=== PATIENT | female | born 1945 | race Two or more races ===

== ENCOUNTER 2020-12-06 03:35 | Inpatient (IN) | payer MEDICARE, OTHER ==
[~2020-12-06] VITALS: Ht 170.2 cm; Wt 78.5 kg
[2020-12-06] VITALS (14 sets, daily range): BP systolic 102–160; BP diastolic 54–92
--- NOTE | 2020-12-06 03:40 | NUR ---
ED Nurse Note:Pt brought in by ambulance RA 58. Axox1 only to self. Pt arrived on 15L NRB SPO2 91%. Per EMS pt's SPO2 desaturated at the [facility]. When EMS checked her SPO2 it was 71% on room air. Pt is covid positve 10 days ago. PT is pale and edematous. Labs sent, urine sent, EKG done at bedside, RT at bedside, nasal swabs and rectal swab sent.
--- NOTE | 2020-12-06 03:42 | Emergency Room Report ---
History of Present Illness General Chief Complaint: Dyspnea/Respdistress Source: Patient, Medical Record, EMS (Evaristo Lopez MD) Present Illness HPI Patient is a 75-year-old female who presents for increased difficulty with breathing and decreased oxygen saturation. Patient been sent in from [facility]. Had prior history of coronavirus infection with positive test 10 days ago. Patient had diminished oxygen saturation and had been started on nonrebreather by EMS. Prior history of unstageable pressure sores, hypertension, dementia, psychosis and hyperlipidemia. History is markedly limited by patient's mental status. 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 COVID-19 Screening: Positive COVID-19 COVID-19 Testing Source: [facility] (Evaristo Lopez MD) Patient History Past Medical History: see triage record Reviewed Nursing Documentation: PMH: Agreed; PSxH: Agreed (Evaristo Lopez MD) Nursing Documentation-PMH Hx Asthma: Yes History Of Psychiatric Problem: Yes - schizophrenia (Evaristo Lopez MD) Review of Systems All Other Systems: limited - Review of systems: Review systems is limited by patient's being a poor historian (Evaristo Lopez MD) Physical Exam Vital Signs Date Time Temp Pulse Resp B/P (MAP) Pulse Ox O2 Delivery O2 Flow Rate FiO2 12/06/20 03:23 99.7 130 28 90 Non-Rebreather General Appearance: alert, obese, Chronically Ill ENT: dry mucus membranes Neck: limited range of motion Respiratory: respiratory distress, rhonchi, other - Tachypnea, Cardiovascular #1: tachycardia Gastrointestinal: normal inspection, non tender, soft Genitourinary: no CVA tenderness Musculoskeletal: other - Decreased range of motion Neurologic: alert, oriented x3 Psychiatric: depressed affect Skin: other - Decubitus ulcer (Evaristo Lopez MD) Procedures Critical Care Time Critical Care Time Patient had a critical medical condition which untreated could potentially result in life or limb threatening injury. Total critical care time excluding procedures approximately 45 minutes. (Evaristo Lopez MD) Medical Decision Making Diagnostic Impression: Primary Impression: Coronavirus infection, unspecified Additional Impressions: Hypoxia Bilateral pneumonia ER Course Patient presented for decreased saturation and respiratory distress. Differential diagnosis include was not limited to coronavirus pneumonia, CHF, pneumonia among others. Because of complexity of patient's case laboratory tests and imaging studies were ordered. Patient has prior history of coronavirus infection. She was started immediately on high flow oxygen. Patient was given IV fluids as well as IV antibiotics empirically. She was given Decadron due to hypoxemia.She was empirically started on IV antibiotics due to possible secondary infection with bacteria. Patient be admitted to hospital for further management of pneumonia and hypoxemia. Patient was started on BiPAP.Patient was discussed with Dr. Vázquez who agreed with admission. Laboratory Tests Test 12/06/20 03:45 12/06/20 03:47 12/06/20 14:45 12/06/20 19:25 White Blood Count 13.3 K/UL (4.8-10.8) H Red Blood Count 3.63 M/UL (4.20-5.40) L Hemoglobin 10.1 G/DL (12.0-16.0) L Hematocrit 32.1 % (37.0-47.0) L Mean Corpuscular Volume 89 FL (80-99) Mean Corpuscular Hemoglobin 27.9 PG (27.0-31.0) Mean Corpuscular Hemoglobin Concent 31.5 G/DL (32.0-36.0) L Red Cell Distribution Width 15.6 % (11.6-14.8) H Platelet Count 281 K/UL (150-450) Mean Platelet Volume 7.2 FL (6.5-10.1) Neutrophils (%) (Auto) 79.0 % (45.0-75.0) H Lymphocytes (%) (Auto) 14.1 % (20.0-45.0) L Monocytes (%) (Auto) 6.4 % (1.0-10.0) Eosinophils (%) (Auto) 0.1 % (0.0-3.0) Basophils (%) (Auto) 0.4 % (0.0-2.0) Prothrombin Time 12.0 SEC (9.30-11.50) H Prothrombin Time INR 1.1 (0.9-1.1) Activated Partial Thromboplast Time 28 SEC (23-33) D-Dimer 6.00 mg/L FEU (0.00-0.49) H Urine Color Yellow Urine Appearance Slightly cloudy Urine pH 6.5 (4.5-8.0) Urine Specific [place] 1.015 (1.005-1.035) Urine Protein 2+ (NEGATIVE) H Urine Glucose (UA) Negative (NEGATIVE) Urine Ketones Negative (NEGATIVE) Urine Blood 4+ (NEGATIVE) H Urine Nitrite Negative (NEGATIVE) Urine Bilirubin Negative (NEGATIVE) Urine Urobilinogen 4 MG/DL (0.0-1.0) H Urine Leukocyte Esterase 1+ (NEGATIVE) H Urine RBC 20-30 /HPF (0 - 2) H Urine WBC 5-10 /HPF (0 - 2) H Urine Squamous Epithelial Cells Moderate /LPF (NONE/OCC) H Urine Bacteria Moderate /HPF (NONE) H Urine Yeast Many /HPF (NONE) H Sodium Level 136 MMOL/L (136-145) Potassium Level 4.4 MMOL/L (3.5-5.1) Chloride Level 103 MMOL/L (98-107) Carbon Dioxide Level 27 MMOL/L (21-32) Anion Gap 6 mmol/L (5-15) Blood Urea Nitrogen 20 mg/dL (7-18) H Creatinine 0.8 MG/DL (0.55-1.30) Estimated Glomerular Filtration Rate > 60 mL/min (>60) Glucose Level 154 MG/DL (74-106) H Lactic Acid Level 1.40 mmol/L (0.4-2.0) Calcium Level 8.5 MG/DL (8.5-10.1) Magnesium Level 1.5 MG/DL (1.8-2.4) L 1.9 MG/DL (1.8-2.4) Ferritin 660 NG/ML (8-388) H Total Bilirubin 0.9 MG/DL (0.2-1.0) Aspartate Amino Transferase (AST) 23 U/L (15-37) Alanine Aminotransferase (ALT) 19 U/L (12-78) Alkaline Phosphatase 100 U/L (46-116) Lactate Dehydrogenase 309 U/L (81-234) H Total Creatine Kinase 44 U/L (26-308) Creatine Kinase MB 2.1 NG/ML (0.0-3.6) Creatine Kinase MB Relative Index 4.7 Troponin I 0.059 ng/mL (0.000-0.056) C-Reactive Protein, Quantitative 14.0 mg/dL (0.00-0.90) H Pro-B-Type Natriuretic Peptide 8374 pg/mL (0-125) H Total Protein 6.4 G/DL (6.4-8.2) Albumin 1.7 G/DL (3.4-5.0) L Globulin 4.7 g/dL Albumin/Globulin Ratio 0.4 (1.0-2.7) L Lipase 252 U/L (73-393) Arterial Blood pH 7.500 (7.350-7.450) Arterial Blood Partial Pressure CO2 33.9 mmHg (35.0-45.0) L Arterial Blood Partial Pressure O2 74.3 mmHg (75.0-100.0) L Arterial Blood HCO3 25.8 mmol/L (22.0-26.0) Arterial Blood Oxygen Saturation 94.4 % (95-100) L Arterial Blood Base Excess 2.8 (-2-2) H Cristian Test Positive Test 12/07/20 04:05 White Blood Count 9.5 K/UL (4.8-10.8) Red Blood Count 2.62 M/UL (4.20-5.40) L Hemoglobin 7.4 G/DL (12.0-16.0) L Hematocrit 23.2 % (37.0-47.0) L Mean Corpuscular Volume 89 FL (80-99) Mean Corpuscular Hemoglobin 28.3 PG (27.0-31.0) Mean Corpuscular Hemoglobin Concent 31.9 G/DL (32.0-36.0) L Red Cell Distribution Width 16.3 % (11.6-14.8) H Platelet Count 203 K/UL (150-450) Mean Platelet Volume 7.2 FL (6.5-10.1) Neutrophils (%) (Auto) % (45.0-75.0) Lymphocytes (%) (Auto) % (20.0-45.0) Monocytes (%) (Auto) % (1.0-10.0) Eosinophils (%) (Auto) % (0.0-3.0) Basophils (%) (Auto) % (0.0-2.0) Neutrophils % (Manual) Pending Lymphocytes % (Manual) Pending Platelet Estimate Pending Platelet Morphology Pending Phosphorus Level 2.7 MG/DL (2.5-4.9) Troponin I 0.043 ng/mL (0.000-0.056) Pro-B-Type Natriuretic Peptide 6376 pg/mL (0-125) H Microbiology Date/Time Source Procedure Growth Status 12/06/20 03:45 Nasal Nares - Final Complete 12/06/20 03:45 Nasal Nares - Final Complete (Evaristo Lopez MD) ER Course I spoke with Dr. Shelton who is very familiar with the patient. He told that the patient is chronically ill and has been in and out of hospitals and detention facilities for quite some time. He knows the patient to be DNR/DNI. However at this time we have been unable to find proper paperwork. Attempts will be made to contact the family. At this time patient will be treated as DNR/DNI. Patient downgraded to stepdown unit. (Nas Mackey M.D.) EKG Diagnostic Results Rate: tachycardiac Rhythm: NSR ST Segments: other - right bundle branch block (Evaristo Lopez MD) Chest X-Ray Diagnostic Results Chest X-Ray Diagnostic Results : Chest X-Ray Ordered: Yes # of Views/Limited/Complete: 1 View Indication: Shortness of Breath EP Interpretation: Yes Impression: Other - bilateral infiltrate (Evaristo Lopez MD) Last Vital Signs Date Time Temp Pulse Resp B/P (MAP) Pulse Ox O2 Delivery O2 Flow Rate FiO2 12/06/20 03:23 99.7 130 28 90 Non-Rebreather Status: improved (Evaristo Lopez MD) Disposition: ADMITTED INPATIENT Condition: Critical Evaristo Lopez MD Dec 06, 2020 03:42 Nas Mackey M.D. Dec 06, 2020 10:44
[2020-12-06] MEDS ORDERED: dexAMETHasone 10mg/ml Inj IV ONE (03:45)
[2020-12-06] MEDS ORDERED: Acetaminophen 650 MG SUPP RECTAL ONE (03:45)
[2020-12-06] MEDS ORDERED: Piperacillin/Tazobactam 3.375 GM in NS 110 ML IV ONE (03:45)
[2020-12-06] MEDS ORDERED: METFORMIN HCL500 M1 ORAL (03:57)
[2020-12-06] MEDS ORDERED: XANAX0.25 MG ORAL (03:57)
[2020-12-06] MEDS ORDERED: ATORVASTATIN CA20 MG ORAL (03:57)
[2020-12-06] MEDS ORDERED: DONEPEZIL HCL5 M2 ORAL (03:57)
[2020-12-06] MEDS ORDERED: AMLODIPINE BESYL5 MG ORAL (03:57)
[2020-12-06] MEDS ORDERED: CITALOPRAM HBR20 M1 ORAL (03:57)
[2020-12-06] MEDS ORDERED: ZYPREXA ZYDIS5 MG ORAL (03:57)
[2020-12-06 04:01] LABS: BASOPHILS % (AUTO) 0.4 % (0.0-2.0); EOSINOPHILS % (AUTO) 0.1 % (0.0-3.0); HEMATOCRIT 32.1 % (37.0-47.0); HEMOGLOBIN 10.1 G/DL (12.0-16.0); LYMPHOCYTES % (AUTO) 14.1 % (20.0-45.0); MEAN CORPUSCULAR VOLUME 89 FL (80-99); MONOCYTES % (AUTO) 6.4 % (1.0-10.0); PLATELET COUNT 281 K/UL (150-450); RED BLOOD COUNT 3.63 M/UL (4.20-5.40); RED CELL DISTRIBUTION WIDTH 15.6 % (11.6-14.8); WHITE BLOOD COUNT 13.3 K/UL (4.8-10.8)
[2020-12-06 04:04] LABS: BILIRUBIN, URINE NEGATIVE (NEGATIVE); GLUCOSE, URINE (UA) NEGATIVE (NEGATIVE); KETONES,URINE NEGATIVE (NEGATIVE); LEUKOCYTE ESTERASE ,URINE 1+ (NEGATIVE); NITRITE,URINE NEGATIVE (NEGATIVE); PH,URINE 6.5 (4.5-8.0); PROTEIN,URINE 2+ (NEGATIVE); UROBILINOGEN,URINE 4 MG/DL (0.0-1.0)
--- NOTE | 2020-12-06 04:06 | NUR ---
ED Nurse Note: PT placed on Bipap by RT per ER MD order
[2020-12-06 04:23] LABS: APPEARANCE,URINE SLIGHTLY CLOUDY; COLOR,URINE YELLOW
[2020-12-06 04:28] LABS: INR 1.1 (0.9-1.1)
[2020-12-06] MEDS ORDERED: Enoxaparin 80mg Inj SUBQ ONE ×2 (04:40→04:45)
[2020-12-06 04:52] LABS: ANION GAP 6 mmol/L (5-15); BLOOD UREA NITROGEN 20 mg/dL (7-18); CALCIUM 8.5 MG/DL (8.5-10.1); CARBON DIOXIDE 27 MMOL/L (21-32); CHLORIDE 103 MMOL/L (98-107); CREATININE 0.8 MG/DL (0.55-1.30); POTASSIUM 4.4 MMOL/L (3.5-5.1); SODIUM 136 MMOL/L (136-145)
[2020-12-06 05:07] LABS: ALANINE AMINOTRANSFERASE 19 U/L (12-78); ALBUMIN 1.7 G/DL (3.4-5.0); ALBUMIN/GLOBULIN RATIO 0.4 (1.0-2.7); ALKALINE PHOSPHATASE 100 U/L (46-116); ASPARTATE AMINO TRANSFERASE 23 U/L (15-37); BILIRUBIN,TOTAL 0.9 MG/DL (0.2-1.0); CKMB 2.1 NG/ML (0.0-3.6); CREATINE KINASE 44 U/L (26-308); FERRITIN 660 NG/ML (8-388); LACTATE DEHYDROGENASE 309 U/L (81-234)
--- NOTE | 2020-12-06 06:06 | NUR ---
ED Nurse Note: Pt is resting comfortably, eyes closed, breathing is much less labored with the bipap, frequent PVCs on tele monitor, ER MD aware, started Mag infusion. Vitals stable as documented.
--- NOTE | 2020-12-06 07:33 | NUR ---
ED Nurse Note: Pt seen sleeping in bed. On BiPAP, tolerating well, not in any distress. Safety and comfort provided. Isolation precaution in place. Will cont to monitor.
--- NOTE | 2020-12-06 09:40 | History & Physical ---
History of Present Illness General Reason for Hospitalization: Dyspnea/Respdistress Present Illness HPI 75-year-old female who was sent to ED from SNF for evaluation of increased difficulty breathing and hypoxia. She has been sent in from [facility]. She has medical history of unstageable pressure sores, hypertension, dementia, psychosis and hyperlipidemia. Further history is limited given her underlying psychiatric illnesses. Much of the information is obtained from ER note and EMR. It was reported that she tested positive for COVID-19 infection 10 days ago. She arrived hypoxic despite placement of nonrebreather by EMS during transportation. Currently she is on BiPAP saturating at 100%. Her ABG shows respiratory alkalosis. Her chest x-ray is notable for bilateral infiltrates. She was given IV fluids and IV antibiotics empirically. She was also given Decadron given hypoxia. He is now admitted to the hospital. PAST MEDICAL HISTORY: Unstageable pressure sores, hypertension, dementia, psychosis, and hyperlipidemia MEDICATIONS: Alprazolam, amlodipine, atorvastatin, citalopram, donezepil, Metformin, olanzapine ALLERGIES: No known allergies FAMILY HISTORY: Unknown PERSONAL/SOCIAL HISTORY: Resident of [facility] REVIEW OF SYSTEMS: Unreliable Allergies: Coded Allergies: No Known Allergies (Unverified , 12/06/20) COVID-19 Screening Contact w/high risk pt: Yes Experienced COVID-19 symptoms?: Yes Coronavirus symptoms experienc: Shortness of Breath Medication History Scheduled Amlodipine Besylate* (Amlodipine Besylate*), 5 MG ORAL DAILY, (Reported) Atorvastatin Calcium* (Atorvastatin Calcium*), 10 MG ORAL BEDTIME, (Reported) Citalopram Hydrobromide* (Citalopram Hbr*), 20 MG ORAL DAILY, (Reported) Donepezil Hcl* (Donepezil Hcl*), 5 MG ORAL DAILY, (Reported) Metformin Hcl* (Metformin Hcl*), 500 MG ORAL TWICE A DAY, (Reported) Olanzapine Zydis* (Zyprexa Zydis*), 5 MG ORAL BEDTIME, (Reported) Scheduled PRN Alprazolam* (Xanax*), 0.25 MG ORAL BEDTIME PRN for PRN Agitation/Anxiety, (Reported) Patient History Healthcare decision maker Resuscitation status Advanced Directive on File Review of Systems Review of Symptoms unable to obtain due to clinical condition Physical Exam Physical Exam General appearance: intubated Head: Normocephalic, without obvious abnormality, atraumatic Eyes: conjunctivae/corneas clear. PERRL, EOM's intac Throat: Lips, mucosa, and tongue normal. Teeth and gums normal Neck: supple, symmetrical, trachea midline, no adenopathy, thyroid: not enlarged, symmetric, no tenderness/mass/nodules, no carotid bruit and no JVD Lungs: clear to auscultation bilaterally Heart: regular rate and rhythm, S1, S2 normal, no murmur, click, rub or gallop Abdomen: soft, non-tender. Bowel sounds normal. No masses, no organomegaly Extremities: extremities normal, atraumatic, no cyanosis or edema Pulses: 2+ and symmetric Last 24 Hour Vital Signs Date Time Temp Pulse Resp B/P (MAP) Pulse Ox O2 Delivery O2 Flow Rate FiO2 12/06/20 07:35 98.3 91 22 151/71 100 Bi-pap 100 12/06/20 07:23 95 23 99 100 12/06/20 06:54 98.3 94 25 154/84 100 Room Air 100 12/06/20 05:42 98.4 118 28 160/89 100 Bi-pap 100 12/06/20 04:38 98.6 115 30 141/54 100 Bi-pap 12/06/20 04:11 98.4 12/06/20 04:00 115 26 97 100 12/06/20 03:54 99.4 110 36 153/85 92 Non-Rebreather 15.0 12/06/20 03:54 110 36 Non-Rebreather 15.0 12/06/20 03:23 99.7 130 28 90 Non-Rebreather Intake and Output 12/05/20 12/06/20 19:00 07:00 Intake Total 610 ml Balance 610 ml Intake IV Total 610 ml Laboratory Tests Test 12/06/20 03:45 12/06/20 03:47 White Blood Count 13.3 K/UL (4.8-10.8) H Red Blood Count 3.63 M/UL (4.20-5.40) L Hemoglobin 10.1 G/DL (12.0-16.0) L Hematocrit 32.1 % (37.0-47.0) L Mean Corpuscular Volume 89 FL (80-99) Mean Corpuscular Hemoglobin 27.9 PG (27.0-31.0) Mean Corpuscular Hemoglobin Concent 31.5 G/DL (32.0-36.0) L Red Cell Distribution Width 15.6 % (11.6-14.8) H Platelet Count 281 K/UL (150-450) Mean Platelet Volume 7.2 FL (6.5-10.1) Neutrophils (%) (Auto) 79.0 % (45.0-75.0) H Lymphocytes (%) (Auto) 14.1 % (20.0-45.0) L Monocytes (%) (Auto) 6.4 % (1.0-10.0) Eosinophils (%) (Auto) 0.1 % (0.0-3.0) Basophils (%) (Auto) 0.4 % (0.0-2.0) Prothrombin Time 12.0 SEC (9.30-11.50) H Prothromb Time International Ratio 1.1 (0.9-1.1) Activated Partial Thromboplast Time 28 SEC (23-33) D-Dimer 6.00 mg/L FEU (0.00-0.49) H Urine Color Yellow Urine Appearance Slightly cloudy Urine pH 6.5 (4.5-8.0) Urine Specific [place] 1.015 (1.005-1.035) Urine Protein 2+ (NEGATIVE) H Urine Glucose (UA) Negative (NEGATIVE) Urine Ketones Negative (NEGATIVE) Urine Blood 4+ (NEGATIVE) H Urine Nitrite Negative (NEGATIVE) Urine Bilirubin Negative (NEGATIVE) Urine Urobilinogen 4 MG/DL (0.0-1.0) H Urine Leukocyte Esterase 1+ (NEGATIVE) H Urine RBC 20-30 /HPF (0 - 2) H Urine WBC 5-10 /HPF (0 - 2) H Urine Squamous Epithelial Cells Moderate /LPF (NONE/OCC) H Urine Bacteria Moderate /HPF (NONE) H Urine Yeast Many /HPF (NONE) H Sodium Level 136 MMOL/L (136-145) Potassium Level 4.4 MMOL/L (3.5-5.1) Chloride Level 103 MMOL/L (98-107) Carbon Dioxide Level 27 MMOL/L (21-32) Anion Gap 6 mmol/L (5-15) Blood Urea Nitrogen 20 mg/dL (7-18) H Creatinine 0.8 MG/DL (0.55-1.30) Estimat Glomerular Filtration Rate > 60 mL/min (>60) Glucose Level 154 MG/DL (74-106) H Lactic Acid Level 1.40 mmol/L (0.4-2.0) Calcium Level 8.5 MG/DL (8.5-10.1) Magnesium Level 1.5 MG/DL (1.8-2.4) L Ferritin 660 NG/ML (8-388) H Total Bilirubin 0.9 MG/DL (0.2-1.0) Aspartate Amino Transf (AST/SGOT) 23 U/L (15-37) Alanine Aminotransferase (ALT/SGPT) 19 U/L (12-78) Alkaline Phosphatase 100 U/L (46-116) Lactate Dehydrogenase 309 U/L (81-234) H Total Creatine Kinase 44 U/L (26-308) Creatine Kinase MB 2.1 NG/ML (0.0-3.6) Creatine Kinase MB Relative Index 4.7 Troponin I 0.059 ng/mL (0.000-0.056) C-Reactive Protein, Quantitative 14.0 mg/dL (0.00-0.90) H Pro-B-Type Natriuretic Peptide 8374 pg/mL (0-125) H Total Protein 6.4 G/DL (6.4-8.2) Albumin 1.7 G/DL (3.4-5.0) L Globulin 4.7 g/dL Albumin/Globulin Ratio 0.4 (1.0-2.7) L Lipase 252 U/L (73-393) Arterial Blood pH 7.500 (7.350-7.450) Arterial Blood Partial Pressure CO2 33.9 mmHg (35.0-45.0) L Arterial Blood Partial Pressure O2 74.3 mmHg (75.0-100.0) L Arterial Blood HCO3 25.8 mmol/L (22.0-26.0) Arterial Blood Oxygen Saturation 94.4 % (95-100) L Arterial Blood Base Excess 2.8 (-2-2) H Cristian Test Positive Microbiology Date/Time Source Procedure Growth Status 12/06/20 03:45 Nasal Nares - Final Complete 12/06/20 03:45 Nasal Nares - Final Complete Height (Feet): 5 Height (Inches): 7.00 Weight (Pounds): 205 Assessment/Plan Diagnosis [place]: #Hypoxemic resp failure due to covid pneumonia #Covid pneumonia #Septic shock #HLD #h/o hypertension #h/o dementia #anemia - admit to ICU - intubated - vent management per ICU - on azithro and ceftriaxone - IVF - on dex - defer remdesevir to ID - ID eval - cardiology eval - gen surg eval for decub ulcer - monitor lytes - monitor hemoglobin [facility] Hospital declaration I spent 70 minutes on this patient's case, and35 minutes was dedicated to co unseling and/or care coordination. MIPS (Merit-based Incentive Payment System) Applicable CPT: 14086, 23542 CHECK ALL THAT ARE MET: Measure #5 (CHF): All ages. Prescribe NIA/ARB upon discharge for patients with left ventricular systolic dysfunction. If not, the reason is clearly documented in the medical chart. Measure #8 (CHF): All ages. Prescribe a beta huma upon discharge for patients with left ventricular systolic dysfunction. If not, the reason is clearly documented in the medical chart. Measure #47 Advance care plan or surrogate decision maker documented in the medical record. Measure #130 The provider has documented, updated, or reviewed the patients current medication list and has documented it in the patients note. Measure #374 (All): Send report to referring provider. Measure #407(Sepsis due to MSSA bacteremia): Age 18+ Patient treated with a beta-lactam antibiotic (Nafcillin, Oxacillin or Cefazolin) as definitive therapy. MEDICAL COMPLEXITY High complexity medical decision making (need 2/3 categories) Problem - need 4 points Acute/new problem with new plan for workup (4 points, 1 max) Acute/new problem without additional workup (3 points, 1 max) Unstable chronic problem actively being managed (2 point each, 2 max) Stable chronic problem actively being managed (1 point each, 2 max) Self-limited/transient process (constipation, muscle ache, etc) (1 point each, 2 max) Data - need 4 points Reviewed labs/imaging studies (1 points, 2 max) Independent review of imaging (EKG, xrays, etc) (2 points, 2 max) Discussed case with consult/other MD/RN (2 points, 2 max) High Risk - qualify if have one of the following: Severe exacerbation of acute problem, acute mental status change, IV narcotics, monitoring drug levels (vancomycin, INR, tacrolimus etc) Atif Vázquez M.D. Dec 06, 2020 09:40
--- NOTE | 2020-12-06 11:02 | NUR ---
ED Nurse Note: Report given to Annamaria MACK.
--- NOTE | 2020-12-06 11:10 | NUR ---
NURSE NOTES: Received report from JOSH Bullock RN. Pt came to ED due to shortness of breath, and decrease O2 sat. Pt is A/O x 1-2. On Bipap tolerating the following setting 15/5, FiO2 100%, saturating 98-100%. Oneal catheter present on admission, IV site on left arm and right arm 20G are intact and patent. Skin issues: pressure ulcer on sacrum st IV, and DTI on left and right heel are noted and dressing changed. Vital signs stable. Bed is locked and in lowest position, bed alarm on, call light is with the pt. Will continue to monitor pt. Will continue with the plan of care.
--- NOTE | 2020-12-06 11:15 | NUR ---
TRANSFER TO FLOOR: Patient transferred to SDU via gurney, accompanied by 2 RNs. Pt is on BIPAP, tolerating well, not in any distress. IV line on right forearm 20g patent adn intact. Swabs are sent. Pt has no belongings.
--- NOTE | 2020-12-06 12:09 | Consultation ---
Consult Note Consult Note DATE OF CONSULTATION: 12/06/2020 CONSULTING PHYSICIAN: Wei Kyle MD. ATTENDING PHYSICIAN: Dr. Vázquez REASON FOR CONSULTATION: COVID-19, bilateral infiltrates on chest x-ray HISTORY OF PRESENT ILLNESS: This is a 75-year-old female who was sent to ED from [facility] for evaluation of increased difficulty breathing and hypoxia. She has been sent in from [facility]. She has medical history of unstageable pressure sores, hypertension, dementia, psychosis and hyperlipidemia. Further history is limited given her underlying psychiatric illnesses. Much of the information is obtained from ER note and EMR. It was reported that she tested positive for COVID-19 infection 10 days ago. She arrived hypoxic despite placement of nonrebreather by EMS during transportation. Currently she is on BiPAP saturating at 100%. Her ABG shows respiratory alkalosis. Her chest x-ray is notable for bilateral infiltrates. She was given IV fluids and IV antibiotics empirically. She was also given Decadron given hypoxia. He is now admitted to the hospital. PAST MEDICAL HISTORY: Unstageable pressure sores, hypertension, dementia, psychosis, and hyperlipidemia MEDICATIONS: Alprazolam, amlodipine, atorvastatin, citalopram, donezepil, Metformin, olanzapine ALLERGIES: No known allergies FAMILY HISTORY: Unknown PERSONAL/SOCIAL HISTORY: Resident of [facility] REVIEW OF SYSTEMS: Unreliable PHYSICAL EXAMINATION: VITAL SIGNS: Blood pressure 143/76, heart rate 84, respiratory rate 23, weight 93 kg, height 170 cm General: Patient appears NAD on BiPAP, with normal work of breathing HEENT: Head exam reveals that the head is normocephalic, atraumatic without deformity or unusual swelling. Pupils are PERRLA. CHEST AND LUNGS: Rhonchi noted CARDIOVASCULAR: Reveals normal S1, S2 without murmurs, rubs, or clicks. ABDOMEN: Soft with no tenderness or organomegaly. RECTAL: Deferred. MUSCULOSKELETAL: There is no tenderness to palpation. Range of motion is normal. NEUROLOGICAL: Alert and oriented x3 , nonfocal LABORATORY DATA: Laboratory testing shows WBC 13.3, hemoglobin 10.1, hematocrit 32.1. Chemistries show BUN 20, glucose 154, ferritin 660, LDH 309, troponin 0.059, CRP 14.0, BNP 8374, albumin 1.7 Urinalysis shows 2+ protein, 4+ blood, 1+ leuk esterase, presence of yeast and bacteria in urine ABG shows pH 7.5, PCO2 33.9, PO2 74.3 Assessment/Plan 1. COVID-19 pneumonia with hypoxia -We will continue broad-spectrum antibiotics for pneumonia coverage -We will continue with dexamethasone given hypoxia -Currently on BiPAP saturating at 100% 2. Elevated inflammatory markers -We will initiate Lovenox for DVT prophylaxis 3. Respiratory alkalosis -Now on BiPAP -Check ABG and labs Leukocytosis Anemia Hyperglycemia Troponin leak Elevated BNP RASHMI - Management per primary MD DNR/DNI Now in [place] The care for this patient was discussed with my supervising physician. Time spent for this case was approximately 31 minutes. Jax Morrell Dec 06, 2020 12:09
--- NOTE | 2020-12-06 12:43 | Consultation ---
History of Present Illness General Date patient seen: Dec 06, 2020 Reason for Hospitalization: Dyspnea/Respdistress Present Illness HPI 75-year-old female who presents for increased difficulty with breathing and decreased oxygen saturation. Patient been sent in from [facility]. Had prior history of coronavirus infection with positive test 10 days ago. Patient had diminished oxygen saturation and had been started on nonrebreather by EMS. Prior history of unstageable pressure sores, hypertension, dementia, psychosis and hyperlipidemia. History is markedly limited by patient's mental status. surgery called to evaluate and assist with care. Allergies: Coded Allergies: No Known Allergies (Unverified , 12/06/20) COVID-19 Screening Contact w/high risk pt: Yes Experienced COVID-19 symptoms?: Yes Coronavirus symptoms experienc: Shortness of Breath Medication History Scheduled Amlodipine Besylate* (Amlodipine Besylate*), 5 MG ORAL DAILY, (Reported) Atorvastatin Calcium* (Atorvastatin Calcium*), 10 MG ORAL BEDTIME, (Reported) Citalopram Hydrobromide* (Citalopram Hbr*), 20 MG ORAL DAILY, (Reported) Donepezil Hcl* (Donepezil Hcl*), 5 MG ORAL DAILY, (Reported) Metformin Hcl* (Metformin Hcl*), 500 MG ORAL TWICE A DAY, (Reported) Olanzapine Zydis* (Zyprexa Zydis*), 5 MG ORAL BEDTIME, (Reported) Scheduled PRN Alprazolam* (Xanax*), 0.25 MG ORAL BEDTIME PRN for PRN Agitation/Anxiety, (Reported) Patient History Limited by: age, medical condition History Provided By: Medical Record, PMD Healthcare decision maker Resuscitation status Advanced Directive on File Past Medical/Surgical History Past Medical/Surgical History: (1) Decubitus skin ulcer (2) Hypoxia (3) Bilateral pneumonia (4) Coronavirus infection, unspecified Review of Systems Review of Symptoms General ROS: no weight loss or fever Psychological ROS: no depression or mood changes, no memory loss Ophthalmic ROS: no visual changes or eye irritation ENT ROS: no nasal congestion, hearing loss, dizziness Allergy and Immunology ROS: no allergic symptoms or urticaria Hematological and Lymphatic ROS: no swollen glands, unusual bleeding or bruising Endocrine ROS: no polyuria, polydipsia, weight changes, temperature intolerance Respiratory ROS: no cough, shortness of breath, or wheezing Cardiovascular ROS: no chest pain or dyspnea on exertion Gastrointestinal ROS: denies abdominal pain, bright red blood in stool. Musculoskeletal ROS: no myalgias or arthralgias Neurological ROS: no TIA or stroke symptoms Dermatological ROS: no new or changing skin lesions, rashes or pruritis limited given condition Physical Exam Physical Exam General appearance: no distress, appears stated age Head: Normocephalic, without obvious abnormality, atraumatic Eyes: conjunctivae/corneas clear. PERRL, EOM's intact. Fundi benign Throat: Lips, mucosa, and tongue normal. Teeth and gums normal Neck: supple, symmetrical, trachea midline, no adenopathy, thyroid: not enlarged, symmetric, no tenderness/mass/nodules, no carotid bruit and no JVD Lungs: clear to auscultation bilaterally Heart: regular rate and rhythm, S1, S2 normal, no murmur, click, rub or gallop Abdomen: soft, non-tender. Bowel sounds normal. No masses, no organomegaly Extremities: extremities normal, atraumatic, no cyanosis or edema Pulses: 2+ and symmetric Skin: Skin see below Neurologic: Grossly normal Last 24 Hour Vital Signs Date Time Temp Pulse Resp B/P (MAP) Pulse Ox O2 Delivery O2 Flow Rate FiO2 12/06/20 11:15 98.3 84 23 143/76 100 Bi-pap 15.0 100 12/06/20 11:02 98.3 84 23 143/76 100 Bi-pap 15.0 100 12/06/20 07:35 98.3 91 22 151/71 100 Bi-pap 100 12/06/20 07:23 95 23 99 100 12/06/20 06:54 98.3 94 25 154/84 100 Room Air 100 12/06/20 05:42 98.4 118 28 160/89 100 Bi-pap 100 12/06/20 04:38 98.6 115 30 141/54 100 Bi-pap 12/06/20 04:11 98.4 12/06/20 04:00 115 26 97 100 12/06/20 03:54 99.4 110 36 153/85 92 Non-Rebreather 15.0 12/06/20 03:54 110 36 Non-Rebreather 15.0 12/06/20 03:23 99.7 130 28 90 Non-Rebreather Intake and Output 12/05/20 12/06/20 19:00 07:00 Intake Total 610 ml Balance 610 ml Intake IV Total 610 ml Laboratory Tests Test 12/06/20 03:45 12/06/20 03:47 White Blood Count 13.3 K/UL (4.8-10.8) H Red Blood Count 3.63 M/UL (4.20-5.40) L Hemoglobin 10.1 G/DL (12.0-16.0) L Hematocrit 32.1 % (37.0-47.0) L Mean Corpuscular Volume 89 FL (80-99) Mean Corpuscular Hemoglobin 27.9 PG (27.0-31.0) Mean Corpuscular Hemoglobin Concent 31.5 G/DL (32.0-36.0) L Red Cell Distribution Width 15.6 % (11.6-14.8) H Platelet Count 281 K/UL (150-450) Mean Platelet Volume 7.2 FL (6.5-10.1) Neutrophils (%) (Auto) 79.0 % (45.0-75.0) H Lymphocytes (%) (Auto) 14.1 % (20.0-45.0) L Monocytes (%) (Auto) 6.4 % (1.0-10.0) Eosinophils (%) (Auto) 0.1 % (0.0-3.0) Basophils (%) (Auto) 0.4 % (0.0-2.0) Prothrombin Time 12.0 SEC (9.30-11.50) H Prothromb Time International Ratio 1.1 (0.9-1.1) Activated Partial Thromboplast Time 28 SEC (23-33) D-Dimer 6.00 mg/L FEU (0.00-0.49) H Urine Color Yellow Urine Appearance Slightly cloudy Urine pH 6.5 (4.5-8.0) Urine Specific [place] 1.015 (1.005-1.035) Urine Protein 2+ (NEGATIVE) H Urine Glucose (UA) Negative (NEGATIVE) Urine Ketones Negative (NEGATIVE) Urine Blood 4+ (NEGATIVE) H Urine Nitrite Negative (NEGATIVE) Urine Bilirubin Negative (NEGATIVE) Urine Urobilinogen 4 MG/DL (0.0-1.0) H Urine Leukocyte Esterase 1+ (NEGATIVE) H Urine RBC 20-30 /HPF (0 - 2) H Urine WBC 5-10 /HPF (0 - 2) H Urine Squamous Epithelial Cells Moderate /LPF (NONE/OCC) H Urine Bacteria Moderate /HPF (NONE) H Urine Yeast Many /HPF (NONE) H Sodium Level 136 MMOL/L (136-145) Potassium Level 4.4 MMOL/L (3.5-5.1) Chloride Level 103 MMOL/L (98-107) Carbon Dioxide Level 27 MMOL/L (21-32) Anion Gap 6 mmol/L (5-15) Blood Urea Nitrogen 20 mg/dL (7-18) H Creatinine 0.8 MG/DL (0.55-1.30) Estimat Glomerular Filtration Rate > 60 mL/min (>60) Glucose Level 154 MG/DL (74-106) H Lactic Acid Level 1.40 mmol/L (0.4-2.0) Calcium Level 8.5 MG/DL (8.5-10.1) Magnesium Level 1.5 MG/DL (1.8-2.4) L Ferritin 660 NG/ML (8-388) H Total Bilirubin 0.9 MG/DL (0.2-1.0) Aspartate Amino Transf (AST/SGOT) 23 U/L (15-37) Alanine Aminotransferase (ALT/SGPT) 19 U/L (12-78) Alkaline Phosphatase 100 U/L (46-116) Lactate Dehydrogenase 309 U/L (81-234) H Total Creatine Kinase 44 U/L (26-308) Creatine Kinase MB 2.1 NG/ML (0.0-3.6) Creatine Kinase MB Relative Index 4.7 Troponin I 0.059 ng/mL (0.000-0.056) C-Reactive Protein, Quantitative 14.0 mg/dL (0.00-0.90) H Pro-B-Type Natriuretic Peptide 8374 pg/mL (0-125) H Total Protein 6.4 G/DL (6.4-8.2) Albumin 1.7 G/DL (3.4-5.0) L Globulin 4.7 g/dL Albumin/Globulin Ratio 0.4 (1.0-2.7) L Lipase 252 U/L (73-393) Arterial Blood pH 7.500 (7.350-7.450) Arterial Blood Partial Pressure CO2 33.9 mmHg (35.0-45.0) L Arterial Blood Partial Pressure O2 74.3 mmHg (75.0-100.0) L Arterial Blood HCO3 25.8 mmol/L (22.0-26.0) Arterial Blood Oxygen Saturation 94.4 % (95-100) L Arterial Blood Base Excess 2.8 (-2-2) H Cristian Test Positive Microbiology Date/Time Source Procedure Growth Status 12/06/20 03:45 Nasal Nares - Final Complete 12/06/20 03:45 Nasal Nares - Final Complete Height (Feet): 5 Height (Inches): 7.00 Weight (Pounds): 205 Assessment/Plan Problem List: (1) Hypoxia Assessment & Plan: leukocytosis anemia covid elevated d dimer pulm consult oxygen steroids? abx ICD Codes: R09.02 - Hypoxemia SNOMED: 284542856 (2) Bilateral pneumonia ICD Codes: J18.9 - Pneumonia, unspecified organism SNOMED: 617287066 (3) Coronavirus infection, unspecified ICD Codes: B34.2 - Coronavirus infection, unspecified SNOMED: 077391668 (4) Decubitus skin ulcer Assessment & Plan: Patient identified admission of multiple decubitus skin ulcers and deep tissue injury. Patient evaluated pictures taken care plan initiated nutritional optimization. Turn every 2 hours hospital protocol initiated for decubitus prevention and care plan. Apply with recommendations. Thank you for let me participate patient's care ICD Codes: L89.90 - Pressure ulcer of unspecified site, unspecified stage SNOMED: 643046860 Rafal Stoll Dec 06, 2020 12:43
--- NOTE | 2020-12-06 12:44 | Diagnostic Imaging Report ---
Indication: Shortness of breath Technique: XRAY Chest 1v Comparison: None Findings: Extensive bilateral infiltrates, right greater than left. No appreciable pneumothorax. Small pleural effusion is not excluded. No appreciable acute osseous abnormality. Note that evaluation limited due to suboptimal positioning. Impression: Extensive bilateral infiltrates which may be related to multifocal pneumonia, including COVID pneumonia. Please correlate clinically.
[2020-12-06] MEDS ORDERED: Acetaminophen 650mg/20.3ml ORAL PRN ×2 (13:30)
[2020-12-06] MEDS ORDERED: Piperacillin/Tazobactam 3.375 GM in NS 110 ML IVPB SCH (13:30)
[2020-12-06] MEDS ORDERED: cefTRIAXone 1 GM in D5W 55 ML IVPB SCH (14:00)
--- NOTE | 2020-12-06 14:57 | Cardiac Electrophysiology PN ---
Subjective Subjective [id number] Objective Last 24 Hour Vital Signs Date Time Temp Pulse Resp B/P (MAP) Pulse Ox O2 Delivery O2 Flow Rate FiO2 12/06/20 11:58 75 12/06/20 11:20 67 17 97 Bi-Pap 100 12/06/20 11:20 67 17 97 100 12/06/20 11:15 98.3 84 23 143/76 100 Bi-pap 15.0 100 12/06/20 11:02 98.3 84 23 143/76 100 Bi-pap 15.0 100 12/06/20 07:35 98.3 91 22 151/71 100 Bi-pap 100 12/06/20 07:23 95 23 99 100 12/06/20 06:54 98.3 94 25 154/84 100 Room Air 100 12/06/20 05:42 98.4 118 28 160/89 100 Bi-pap 100 12/06/20 04:38 98.6 115 30 141/54 100 Bi-pap 12/06/20 04:11 98.4 12/06/20 04:00 115 26 97 100 12/06/20 03:54 99.4 110 36 153/85 92 Non-Rebreather 15.0 12/06/20 03:54 110 36 Non-Rebreather 15.0 12/06/20 03:23 99.7 130 28 90 Non-Rebreather Intake and Output 12/05/20 12/06/20 19:00 07:00 Intake Total 610 ml Balance 610 ml Intake IV Total 610 ml Laboratory Tests Test 12/06/20 03:45 12/06/20 03:47 12/06/20 14:45 White Blood Count 13.3 K/UL (4.8-10.8) H Red Blood Count 3.63 M/UL (4.20-5.40) L Hemoglobin 10.1 G/DL (12.0-16.0) L Hematocrit 32.1 % (37.0-47.0) L Mean Corpuscular Volume 89 FL (80-99) Mean Corpuscular Hemoglobin 27.9 PG (27.0-31.0) Mean Corpuscular Hemoglobin Concent 31.5 G/DL (32.0-36.0) L Red Cell Distribution Width 15.6 % (11.6-14.8) H Platelet Count 281 K/UL (150-450) Mean Platelet Volume 7.2 FL (6.5-10.1) Neutrophils (%) (Auto) 79.0 % (45.0-75.0) H Lymphocytes (%) (Auto) 14.1 % (20.0-45.0) L Monocytes (%) (Auto) 6.4 % (1.0-10.0) Eosinophils (%) (Auto) 0.1 % (0.0-3.0) Basophils (%) (Auto) 0.4 % (0.0-2.0) Prothrombin Time 12.0 SEC (9.30-11.50) H Prothromb Time International Ratio 1.1 (0.9-1.1) Activated Partial Thromboplast Time 28 SEC (23-33) D-Dimer 6.00 mg/L FEU (0.00-0.49) H Urine Color Yellow Urine Appearance Slightly cloudy Urine pH 6.5 (4.5-8.0) Urine Specific [place] 1.015 (1.005-1.035) Urine Protein 2+ (NEGATIVE) H Urine Glucose (UA) Negative (NEGATIVE) Urine Ketones Negative (NEGATIVE) Urine Blood 4+ (NEGATIVE) H Urine Nitrite Negative (NEGATIVE) Urine Bilirubin Negative (NEGATIVE) Urine Urobilinogen 4 MG/DL (0.0-1.0) H Urine Leukocyte Esterase 1+ (NEGATIVE) H Urine RBC 20-30 /HPF (0 - 2) H Urine WBC 5-10 /HPF (0 - 2) H Urine Squamous Epithelial Cells Moderate /LPF (NONE/OCC) H Urine Bacteria Moderate /HPF (NONE) H Urine Yeast Many /HPF (NONE) H Sodium Level 136 MMOL/L (136-145) Potassium Level 4.4 MMOL/L (3.5-5.1) Chloride Level 103 MMOL/L (98-107) Carbon Dioxide Level 27 MMOL/L (21-32) Anion Gap 6 mmol/L (5-15) Blood Urea Nitrogen 20 mg/dL (7-18) H Creatinine 0.8 MG/DL (0.55-1.30) Estimat Glomerular Filtration Rate > 60 mL/min (>60) Glucose Level 154 MG/DL (74-106) H Lactic Acid Level 1.40 mmol/L (0.4-2.0) Calcium Level 8.5 MG/DL (8.5-10.1) Magnesium Level 1.5 MG/DL (1.8-2.4) L Pending Ferritin 660 NG/ML (8-388) H Total Bilirubin 0.9 MG/DL (0.2-1.0) Aspartate Amino Transf (AST/SGOT) 23 U/L (15-37) Alanine Aminotransferase (ALT/SGPT) 19 U/L (12-78) Alkaline Phosphatase 100 U/L (46-116) Lactate Dehydrogenase 309 U/L (81-234) H Total Creatine Kinase 44 U/L (26-308) Creatine Kinase MB 2.1 NG/ML (0.0-3.6) Creatine Kinase MB Relative Index 4.7 Troponin I 0.059 ng/mL (0.000-0.056) C-Reactive Protein, Quantitative 14.0 mg/dL (0.00-0.90) H Pro-B-Type Natriuretic Peptide 8374 pg/mL (0-125) H Total Protein 6.4 G/DL (6.4-8.2) Albumin 1.7 G/DL (3.4-5.0) L Globulin 4.7 g/dL Albumin/Globulin Ratio 0.4 (1.0-2.7) L Lipase 252 U/L (73-393) Arterial Blood pH 7.500 (7.350-7.450) Arterial Blood Partial Pressure CO2 33.9 mmHg (35.0-45.0) L Arterial Blood Partial Pressure O2 74.3 mmHg (75.0-100.0) L Arterial Blood HCO3 25.8 mmol/L (22.0-26.0) Arterial Blood Oxygen Saturation 94.4 % (95-100) L Arterial Blood Base Excess 2.8 (-2-2) H Cristian Test Positive Microbiology Date/Time Source Procedure Growth Status 12/06/20 03:45 Nasal Nares - Final Complete 12/06/20 03:45 Nasal Nares - Final Complete Rowdy Palomino MD Dec 06, 2020 14:57
[2020-12-06] MEDS ORDERED: Azithromycin 500 MG in D5W 275 ML IV SCH (15:00)
--- NOTE | 2020-12-06 15:04 | NUR ---
NURSE NOTES:WOUND CARE NOTES:PT presented on admission with Multiple Pressure Injuries. Historical scar noted to R Hip. Full thickness Sacral Pressure Injury with undermined borders(L)16cm x (W)17.2cm x (D)3.8cm, Undermining clockwise 10-2 by 4.7cm @11o'clock; undermining clockwise 3-5o'clock by 3.3cm @5o'clock. Base of wound is 25% necrotic, 75% pink with scattered slough. Bone exposure at base of wound.Slough noted along detached borders. An additional area of Necrosis noted along borders and periwound clockwise at 1-4o'clock. Small amt seropurulent exudate noted. Wound is malodorous. DTPI L Gluteal cheek(L)1.4cm x (W)0.3cm. Base of Pressure injury is purpuric with marginal erythema along borders. Non-Blanchable erythema without induration/fluctuance noted to medial aspects of both R and L Knees. DTPI R Heel that is 50% de-capped and is moist and pink, 50% purpuric cap. Periwound is fluctuant but blanchable.(L)5.7cm x (W)9.4cm Reabsorbing DTPI R Lateral Malleolus(L)1cm x (W)1cm. Base of Pressure Injury is maroon, but dry. DTPI L Heel(L)3.9cm x (W)9.6cm. Base of Pressure Injury is 40% Purpuric and indurated ,60% maroon.Surrounding heel is boggy ,non-blanchable with dry peeling skin. Partial Thickness Pressure Injury medial L Malleolus(L)2.9cm x (W)2.2cm. Base of wound is moist and viable with loose rolled skin flap along edges. No evidence of additional skin breakdown periwound. DTPI L Hallux(L)0.4cm x (W)3.3cm. Base of injury is maroon and indurated with marginal erythema along borders. DTPI dorso/medial L foot(L)0.5cm x (W)1.5cm.Base of injury is purpuric with marginal erythema along Borders. DTPI Lateral L Foot (L)1.2cm x (W01.7cm. Base of Injury is maroon with fluctuance. surrounding non-blanchable erythema without induration. Non-Blanchable erythema with fluctuance distal/lateral L foot to L 5th metatarsal (L)3.5cm x (W)5.8cm. Tx.Plan: Cleanse Sacral wound with Dakin's 0.125% Kori. Loosely pack with Dakin's moistened Kerlix. Apply Moisture Barrier Paste Periwound. Cover with Optifoam drsg Daily and prn. Apply Moisture Barrier Paste to DTPI L Gluteal cheek. Cover with Optifoam drsg. Daily and prn. Apply Cavilon Skin BArrier to Medial R and L Knees. Cover each Knee with Optifoam drsgs. Change every 7 days and prn. Apply Betadine to R Heel, R lateral Malleolus. Cover with Optifoam drsg. Change every 3 days and prn. Apply Betadine to L Heel, Medial L foot, L Hallux, Lateral L foot. Cover each site with Optifoam drsgs. Change every 3 days and prn. Cover bony promineneces as needed with Optifoam drsgs. Reposition at least every 2hours or as tolerated. Place Pillow between Knees. Off-load heels with Pillow. APM/DOMINGO Mattress overlay.
--- NOTE | 2020-12-06 15:44 | Consultation ---
DATE OF CONSULTATION: 12/06/2020 NOTE: INCOMPLETE DICTATION INFECTIOUS DISEASE CONSULT PRIMARY ATTENDING PHYSICIAN: Atif Vázquez M.D. REASON FOR CONSULT: COVID-19 pneumonia. HISTORY OF PRESENT ILLNESS: This is a 75-year-old female admitted today from a retirement facility because of shortness of breath. She was positive for COVID 10 days ago. After admission, she first was on oxygen by nonrebreather mask, then was put on BiPAP. The patient is noncommunicative and not a source of history. Has leukocytosis of 13.3 and tachycardia of 130 at the time of admission. PAST MEDICAL HISTORY: Dementia, hypertension, dyslipidemia, anemia, unstageable pressure ulcer. ALLERGIES: No known drug allergies. MEDICATIONS: Getting heparin, dexamethasone, ceftriaxone, azithromycin. Got a dose of Zithromax in the ER. SOCIAL HISTORY: shelter resident. No other history obtainable by the patient. PHYSICAL EXAMINATION: VITAL SIGNS: Temperature 98.3, pulse 75, blood pressure 143/76. GENERAL APPEARANCE: She seems to be well developed . HEAD AND NECK: Moist mucous membranes. HEART: Normal rate. LUNGS: On BiPAP, has bilateral rhonchi. ABDOMEN: Soft, nontender. EXTREMITIES: No edema. LABORATORY AND DIAGNOSTIC DATA: WBC 13.3, hemoglobin 10.9, hematocrit 32.1, platelets 281. Sodium 136, potassium 4.4, chloride 103, bicarb 27, BUN 20, creatinine 0.8. Glucose is 154, ferritin 400. Troponin elevated at 0.059. CRP elevated. Albumin is 1.7. Chest x-ray showed bilateral infiltrates related to multifocal pneumonia. IMPRESSION: 1.Sepsis with tachycardia & leukocytosis 2. COVID19 pneumonia 3.Hypoxemia. 4. Dementia Recommendation: 1. Continue Rocephin & Zithromax 2. Continue Dexamethasone Nick Cook M.D. DR: RAAD JOB#: [id number] CC: DALE
[2020-12-06] MEDS: D5 1/2NS 1,000 ML IV SCH (15:51)
--- NOTE | 2020-12-06 16:16 | NUR ---
NURSE NOTES: Pt O2 saturation decrease to 89. RT was called to assess the pt. BP is 135/92, HR 129, RR was 36. Pt was hard to awaken. Dr. Vázquez was contacted and informed. BATTERY CHECKER was called. ED MD intubated the pt. Pt was then transferred to ICU. Gave report to Lilia Fall. Endorsed plan of care.
--- NOTE | 2020-12-06 16:19 | NUR ---
NURSE NOTES: I spoke to Anish Whitfield she wants full code patient,to do everything to save her,I notified Dr. Vázquez patients condition ,tacypneic,condition unstable,O2 saturation 40 %,per Dr. Vázquez if ABG result needs intubation,intubate patient and transfer ICU,CHAIN PULLER was called [facility] PARKING GARAGE MANAGER called ED doctor to intubate patient,notified Doctor Gurpreet Anish Frazier wants full code Addendum: 12/06/20 at 1720 by Mindy Chun RN Anish Frazier notified patients condition
--- NOTE | 2020-12-06 17:27 | NUR ---
NURSE NOTES: notified Daughter Karin Whitfield ,patient in ICU [id number]
--- NOTE | 2020-12-06 17:41 | NUR ---
TX,FR,SDU S/P INTUBATION DUE TORESP,FX PT WAS ON BIPAP STAT ABG DONE CXR,ABG WILL FOLLOWPOST INTUBATIO/ INTUBATED IN SDU BY ER JANICE HANDLEY DR /NOTIFIED PT, DTR,AND AWARE
--- NOTE | 2020-12-06 17:53 | Diagnostic Imaging Report ---
EXAM: XR Chest, 1 View CLINICAL HISTORY: S/P INTUB TECHNIQUE: Frontal view of the chest. COMPARISON: X-ray dated 12/06/2020 FINDINGS: Lungs: Diffuse airspace opacities concerning for infectious process. Pleural space: Small bilateral pleural effusions. Heart: Unremarkable. Mediastinum: Unremarkable. Bones/joints: Unremarkable. Tubes, lines and devices: Endotracheal tube within thoracic inlet. IMPRESSION: 1. Endotracheal tube within thoracic inlet. 2. Diffuse airspace opacities concerning for infectious process. 3. Small bilateral pleural effusions.
--- NOTE | 2020-12-06 19:10 | NUR ---
NURSE NOTES: Received patient from Lilia MACK. patient opens eyes but no response. sinus rhythm on the monitor. ETT 7.5, 22cm at the lip. AC 16 TV 500 FiO2 100% PEEP 5, tolerating well. vargas in place and draining well to gravity. patient currently NPO. LFA 20G and RFA 20G IV site patent and intact. D5 1/2 NS running 75ml/hr. bed to lowest position and locked. side rails up x2. call light within easy reach. Will continue plan of care.
--- NOTE | 2020-12-06 19:30 | NUR ---
NURSE NOTES: RT came at bedside and titrated FiO2 from 100% to 80%. O2 saturation 100%. will monitor closely
--- NOTE | 2020-12-06 20:00 | NUR ---
NURSE NOTES: contacted Dr. Vázquez and updated regarding patient's ABG. PH 7.479, PCO2 28.3, PO2 163.2, HCO3 20.6. Also updated patient's vent settings AC 16 TV 500 FiO2 80% PEEP 5. Dr. Vázquez aware and acknowledged. Ordered to change TV from 500 to 400 and FiO2 from 80% to 70%. will carry out orders.
--- NOTE | 2020-12-06 20:30 | Consultation ---
DATE OF CONSULTATION: 12/06/2020 CARDIOLOGY CONSULTATION CONSULTING PHYSICIAN: Rowdy Palomino M.D. REASON FOR CONSULTATION: Tachycardia and bundle-branch block and old inferior wall CO in a patient with COVID pneumonia. HISTORY OF PRESENT ILLNESS: The patient is a 75-year-old lady who was brought in from a halfway for desaturation from [facility]. The patient has prior history of coronavirus infection about 10 days ago and had diminished oxygen saturation and was started on nonrebreather by the paramedics. The patient also has dementia, psychosis, and hyperlipidemia. The patient also is noted to be tachycardic with heart rate of 114 and a cardiology consultation was obtained for further evaluation. REVIEW OF SYSTEMS: Cannot be obtained. PAST MEDICAL HISTORY: As mentioned above. FAMILY HISTORY: Noncontributory. SOCIAL HISTORY: Lives in a halfway. PHYSICAL EXAMINATION: VITAL SIGNS: Blood pressure of 143/76, pulse is 70, respirations 18, and temperature 98.3. HEAD AND NECK: No JVD. LUNGS: Coarse rhonchi. CARDIOVASCULAR: Regular S1 and S2 with no gallop. ABDOMEN: Soft. EXTREMITIES: No pitting edema. LABORATORY AND DIAGNOSTIC DATA: Labs show white count of 13.2, hemoglobin of 10, hematocrit 32, and platelet count of 281. Sodium , potassium 4.4, BUN of 20, creatinine of 0.8. Troponin 0.059. ASSESSMENT AND PLAN: 1. Elevated troponin of 0.059. The patient does not have renal failure. This could be due to COVID pneumonia. 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 I will start the patient on aspirin and metoprolol and Lipitor. I will get an echocardiogram for further evaluation. 2. Right bundle-branch block. 3. Sinus tachycardia at 113 due to the patient's COVID pneumonia. 4. COVID pneumonia, currently on BiPAP as well as dexamethasone, azithromycin, and ceftriaxone. Thank you very much for allowing me to participate in the care of this patient. Please do not hesitate to contact me if you have any questions regarding my evaluation. Rowdy Palomino M.D. DR: CINDY JOB#: [id number] CC:
[2020-12-06] MEDS ORDERED: Atorvastatin 20mg tab ORAL SCH (21:00)
--- NOTE | 2020-12-06 22:44 | Emergency Room Report ---
Physical Exam Vital Signs Date Time Temp Pulse Resp B/P (MAP) Pulse Ox O2 Delivery O2 Flow Rate FiO2 12/06/20 03:23 99.7 130 28 90 Non-Rebreather 12/06/20 03:54 15.0 12/06/20 03:54 153/85 12/06/20 04:00 100 Medical Decision Making Diagnostic Impression: Primary Impression: COVID-19 Additional Impressions: Pneumonia Respiratory failure ER Course I was called by the inpatient nursing staff on this patient for a rapid response. The patient needed an emergency intubation for respiratory failure. This is an inpatient and not a patient in the emergency department. The patient was admitted for COVID-19 pneumonia and is failing on BiPAP with CO2 retention and respiratory failure. I perform rapid sequence intubation per direct laryngoscopy. The patient was premedicated with etomidate and succinylcholine. A 7.5 endotracheal tube was passed by direct visualization on the first attempt without desaturation or complication. Color change was observed on the end-tidal CO2 after intubation. Breath sounds were equal bilaterally and chest x-ray showed appropriate endotracheal tube placement. Further care is deferred to the inpatient physician caring for this patient as this was an emergency intubation on a patient that is not under my care. Last Vital Signs Date Time Temp Pulse Resp B/P (MAP) Pulse Ox O2 Delivery O2 Flow Rate FiO2 12/06/20 22:00 85 15 116/67 (83) 100 12/06/20 20:00 98.3 12/06/20 20:00 Mechanical Ventilator 12/06/20 20:00 80 12/06/20 11:15 15.0 Disposition: ADMITTED INPATIENT Condition: Critical Referrals: NON PHYSICIAN (PCP) Kristen Melendez DO Dec 06, 2020 22:44
--- NOTE | 2020-12-06 23:40 | NUR ---
NURSE NOTES: NGT inserted. KUB ordered. waiting for results
[2020-12-07] VITALS (24 sets, daily range): BP systolic 99–138; BP diastolic 49–78
--- NOTE | 2020-12-07 00:44 | Diagnostic Imaging Report ---
EXAM: XR Abdomen, 2 Views CLINICAL HISTORY: NGT TECHNIQUE: Frontal view of the abdomen/pelvis with upright view of the abdomen. COMPARISON: Chest x-ray 12/06/2020. FINDINGS: Intraperitoneal space: No free air. Gastrointestinal tract: Unremarkable. No dilation. Bones/joints: Unremarkable. Tubes, lines and devices: An enteric tube courses below the level of the diaphragm with both the terminus and side port overlying the expected region of the stomach. Other: Patchy opacities within the lung bases, seen to better advantage on chest x-ray performed same day and dictated separately. IMPRESSION: 1. No acute findings in the abdomen or pelvis. 2. An enteric tube is visualized, likely terminating within the stomach.
[2020-12-07] MEDS: D5 1/2NS 1,000 ML IV SCH (02:00)
--- NOTE | 2020-12-07 04:00 | NUR ---
NURSE NOTES: RT came at bedside and titrated FiO2 from 80% to 50%. O2 saturation 99%.
--- NOTE | 2020-12-07 05:23 | NUR ---
NURSE NOTES: bed bath performed. patient had a small BM. sacral wound packed and optifoam changed.
[2020-12-07 05:33] LABS: HEMATOCRIT 23.2 % (37.0-47.0); HEMOGLOBIN 7.4 G/DL (12.0-16.0); MEAN CORPUSCULAR VOLUME 89 FL (80-99); PLATELET COUNT 203 K/UL (150-450); RED BLOOD COUNT 2.62 M/UL (4.20-5.40); RED CELL DISTRIBUTION WIDTH 16.3 % (11.6-14.8); WHITE BLOOD COUNT 9.5 K/UL (4.8-10.8)
[2020-12-07 05:55] LABS: PHOSPHORUS 2.7 MG/DL (2.5-4.9)
--- NOTE | 2020-12-07 07:00 | NUR ---
NURSE HAND-OFF REPORT: Latest Vital Signs: Temperature 98.4 , Pulse 106 , B/P 138 /67 , Respiratory Rate 15 , O2 SAT 100 , Bi-pap, O2 Flow Rate 15.0 . Vital Sign Comment: stable EKG Rhythm: Sinus Rhythm Rhythm change?: N Notified?: Ishaan Vázquez MD Response: Order Received& Read Back Latest [place] Fall Score: 50 Fall Risk: High Risk Safety Measures: Call light Within Reach, Bed Alarm Zone 1, Side Rails Side Rails x2, Bed position Low and Locked. Fall Precautions: Yellow Socks Yellow Gown Door Sign Patient Fall Education Report given to FREDERICK Mckeon.
--- NOTE | 2020-12-07 07:15 | NUR ---
NURSE NOTES: Received report from FREDERICK Armijo. Patient open her eyes without tracking. SR on the monitor. ETT 7.5/22cm at lip line with vent setting AC 16, VT 400, Peep 5 and FiO2 50%. Left NGT intact and clamped. Oneal intact and draining with yellow color urine. Right FA 20 IV and Left FA 20G IV intact and running with D5 and 1/2 NS @75ml/hr. Will continue plan of care.
--- NOTE | 2020-12-07 08:03 | Internal Med Progress Note ---
Subjective Physician Name Atif Vázquez Attending Physician Atif Vázquez M.D. Current Medications Medications (Trade) Dose Ordered Sig/Raji Route PRN Reason Start Time Stop Time Status Last Admin Dose Admin Acetaminophen (Tylenol) 650 mg Q4H PRN ORAL FEVER 12/06/20 13:30 01/05/21 13:29 Acetaminophen (Tylenol) 650 mg Q4H PRN ORAL Mild Pain (Pain Scale 1-3) 12/06/20 13:30 01/05/21 13:29 Aspirin (Ecotrin) 81 mg DAILY ORAL 12/07/20 09:00 01/21/21 08:59 Atorvastatin Calcium (Lipitor) 20 mg BEDTIME ORAL 12/06/20 21:00 03/06/21 20:59 Azithromycin 500 mg/Dextrose 275 ml @ 275 mls/hr Q24HRS IV 12/06/20 15:00 12/12/20 15:59 12/06/20 15:52 Ceftriaxone Sodium 1 gm/ Dextrose 55 ml @ 110 mls/hr Q24H IVPB 12/06/20 14:00 12/13/20 13:59 12/06/20 17:00 Dexamethasone Sodium Phosphate (Decadron 10mg/ ml Inj) 6 mg DAILY IV 12/07/20 09:00 12/16/20 08:59 Dextrose/Sodium Chloride 1,000 ml @ 75 mls/hr [id number] IV 12/06/20 13:30 01/05/21 13:29 12/07/20 02:00 Heparin Sodium (Porcine) (Heparin 5000 units/ml) 5,000 units EVERY 12 HOURS SUBQ 12/07/20 09:00 01/21/21 08:59 Metoprolol Tartrate (Lopressor) 25 mg Q12HR ORAL 12/06/20 21:00 03/06/21 20:59 Sodium Hypochlorite (Dakin's Quarter Strength) 1 applic DAILY TOPIC 12/07/20 09:00 01/06/21 08:59 Allergies: Coded Allergies: No Known Allergies (Unverified , 12/06/20) ROS Limited/Unobtainable: Yes Subjective intubated overnight discussed with daughter extensively would like to transition to comfort care Objective Last Vital Signs Date Time Temp Pulse Resp B/P (MAP) Pulse Ox O2 Delivery O2 Flow Rate FiO2 12/07/20 07:00 106 15 138/67 (90) 100 12/07/20 04:00 Mechanical Ventilator 12/07/20 04:00 50 12/07/20 04:00 98.4 12/06/20 11:15 15.0 Laboratory Tests Test 12/06/20 14:45 12/06/20 19:25 12/07/20 04:05 Magnesium Level 1.9 MG/DL (1.8-2.4) Arterial Blood pH 7.479 (7.350-7.450) Arterial Blood Partial Pressure CO2 28.3 mmHg (35.0-45.0) L Arterial Blood Partial Pressure O2 163.2 mmHg (75.0-100.0) H Arterial Blood HCO3 20.6 mmol/L (22.0-26.0) L Arterial Blood Oxygen Saturation 98.3 % (95-100) Arterial Blood Base Excess -2.3 (-2-2) L Cristian Test Positive White Blood Count 9.5 K/UL (4.8-10.8) Red Blood Count 2.62 M/UL (4.20-5.40) L Hemoglobin 7.4 G/DL (12.0-16.0) L Hematocrit 23.2 % (37.0-47.0) L Mean Corpuscular Volume 89 FL (80-99) Mean Corpuscular Hemoglobin 28.3 PG (27.0-31.0) Mean Corpuscular Hemoglobin Concent 31.9 G/DL (32.0-36.0) L Red Cell Distribution Width 16.3 % (11.6-14.8) H Platelet Count 203 K/UL (150-450) Mean Platelet Volume 7.2 FL (6.5-10.1) Neutrophils (%) (Auto) % (45.0-75.0) Lymphocytes (%) (Auto) % (20.0-45.0) Monocytes (%) (Auto) % (1.0-10.0) Eosinophils (%) (Auto) % (0.0-3.0) Basophils (%) (Auto) % (0.0-2.0) Neutrophils % (Manual) Pending Lymphocytes % (Manual) Pending Platelet Estimate Pending Platelet Morphology Pending Sodium Level Pending Potassium Level Pending Chloride Level Pending Carbon Dioxide Level Pending Blood Urea Nitrogen Pending Creatinine Pending Estimat Glomerular Filtration Rate Pending Glucose Level Pending Calcium Level Pending Phosphorus Level 2.7 MG/DL (2.5-4.9) Troponin I 0.043 ng/mL (0.000-0.056) Pro-B-Type Natriuretic Peptide 6376 pg/mL (0-125) H Microbiology Date/Time Source Procedure Growth Status 12/06/20 03:45 Nasal Nares - Final Complete 12/06/20 03:45 Nasal Nares - Final Complete Intake and Output 12/06/20 12/07/20 19:00 07:00 Intake Total 1180 ml 825 ml Output Total 100 ml 370 ml Balance 1080 ml 455 ml Intake IV Total 1180 ml 825 ml Output Urine Total 100 ml 370 ml Assessment/Plan Assessment/Plan #Hypoxemic resp failure due to covid pneumonia #Covid pneumonia #Septic shock #HLD #h/o hypertension #h/o dementia #anemia - admit to ICU - intubated intubated overnight discussed with daughter extensively would like to transition to comfort care - on azithro and ceftriaxone - IVF - on dex - defer remdesevir to ID - ID eval - cardiology eval - gen surg eval for decub ulcer - monitor lytes - monitor hemoglobin Atif Vázquez M.D. Dec 07, 2020 08:03
[2020-12-07 08:12] LABS: ANION GAP 7 mmol/L (5-15); BLOOD UREA NITROGEN 22 mg/dL (7-18); CALCIUM 7.9 MG/DL (8.5-10.1); CARBON DIOXIDE 25 MMOL/L (21-32); CHLORIDE 104 MMOL/L (98-107); CREATININE 0.7 MG/DL (0.55-1.30); POTASSIUM 3.8 MMOL/L (3.5-5.1); SODIUM 136 MMOL/L (136-145)
[2020-12-07 08:16] LABS: % IRON SATURATION 18 % (15-50); IRON 23 ug/dL (50-175); TOTAL IRON BINDING CAPACITY 131 ug/dL (250-450)
[2020-12-07 08:33] LABS: FERRITIN 852 NG/ML (8-388)
[2020-12-07] MEDS ORDERED: Dakin's 0.125% Soln (Quarter Strength) 16oz TOPIC SCH (09:00)
[2020-12-07] MEDS ORDERED: dexAMETHasone 10mg/ml Inj IV SCH ×2 (09:00)
[2020-12-07] MEDS ORDERED: Aspirin EC 81mg tab ORAL SCH (09:00)
[2020-12-07] MEDS ORDERED: Heparin 5000 units/ml inj SUBQ SCH (09:00)
--- NOTE | 2020-12-07 09:03 | Infectious Diseases Prog Note ---
Assessment/Plan Assessment/Plan IMPRESSION: 1.Sepsis with tachycardia & leukocytosis 2. COVID19 pneumonia 3.Hypoxemia. 4. Dementia 5. RBBB Recommendation: 1. Continue Rocephin & Zithromax 2. Continue Dexamethasone 3. Case was D/W primary MD 4. Not eligible for Remdesivir Subjective ROS Limited/Unobtainable: Yes Constitutional: Reports: other - transferred to ICU Respiratory: Reports: other - intubated last night Allergies: Coded Allergies: No Known Allergies (Unverified , 12/06/20) Objective Last 24 Hour Vital Signs Date Time Temp Pulse Resp B/P (MAP) Pulse Ox O2 Delivery O2 Flow Rate FiO2 12/07/20 07:00 106 15 138/67 (90) 100 12/07/20 06:00 95 18 110/58 (75) 96 12/07/20 05:00 89 15 110/56 (74) 98 12/07/20 04:00 Mechanical Ventilator 12/07/20 04:00 95 12/07/20 04:00 50 12/07/20 04:00 98.4 93 15 99/55 (70) 99 12/07/20 03:56 100 22 50 12/07/20 03:00 89 16 116/64 (81) 100 12/07/20 02:00 91 17 109/58 (75) 100 12/07/20 01:00 89 15 101/49 (66) 99 12/07/20 00:00 123 12/07/20 00:00 98.7 101 22 117/57 (77) 97 12/07/20 00:00 Mechanical Ventilator 12/06/20 23:19 94 20 60 12/06/20 23:00 102 19 140/74 (96) 100 12/06/20 22:00 85 15 116/67 (83) 100 12/06/20 21:00 99 19 119/57 (77) 100 12/06/20 20:00 98.3 96 16 110/65 (80) 100 12/06/20 20:00 Mechanical Ventilator 12/06/20 20:00 80 12/06/20 19:22 129 38 80 12/06/20 19:19 96 18 80 12/06/20 19:00 80 14 110/57 (74) 100 12/06/20 18:00 99.4 76 17 102/64 (77) 100 12/06/20 17:53 100 12/06/20 17:30 75 12/06/20 17:02 87 16 99 Mechanical Ventilator 100 12/06/20 17:02 87 16 100 12/06/20 16:16 120 12/06/20 16:00 98.7 89 17 129/72 (91) 98 12/06/20 16:00 Bi-pap 12/06/20 15:33 111 12/06/20 15:21 117 20 96 100 12/06/20 12:23 Bi-pap 12/06/20 11:58 75 12/06/20 11:20 67 17 97 Bi-Pap 100 12/06/20 11:20 67 17 97 100 12/06/20 11:15 98.3 84 23 143/76 100 Bi-pap 15.0 100 12/06/20 11:02 98.3 84 23 143/76 100 Bi-pap 15.0 100 Height (Feet): 5 Height (Inches): 7.00 Weight (Pounds): 173 HEENT: mucous membranes moist, other - orally intubated Respiratory/Chest: other - on Ventilator, FIO2=50% Cardiovascular: tachycardia Abdomen: soft, non tender, other - NG tube Extremities: no edema Neurologic/Psychiatric: other - opens eyes Microbiology Date/Time Source Procedure Growth Status 12/06/20 03:45 Nasal Nares - Final Complete 12/06/20 03:45 Nasal Nares - Final Complete Laboratory Tests Test 12/06/20 14:45 12/06/20 19:25 12/07/20 04:05 Magnesium Level 1.9 MG/DL (1.8-2.4) 1.8 MG/DL (1.8-2.4) Arterial Blood pH 7.479 (7.350-7.450) Arterial Blood Partial Pressure CO2 28.3 mmHg (35.0-45.0) L Arterial Blood Partial Pressure O2 163.2 mmHg (75.0-100.0) H Arterial Blood HCO3 20.6 mmol/L (22.0-26.0) L Arterial Blood Oxygen Saturation 98.3 % (95-100) Arterial Blood Base Excess -2.3 (-2-2) L Cristian Test Positive White Blood Count 9.5 K/UL (4.8-10.8) Red Blood Count 2.62 M/UL (4.20-5.40) L Hemoglobin 7.4 G/DL (12.0-16.0) L Hematocrit 23.2 % (37.0-47.0) L Mean Corpuscular Volume 89 FL (80-99) Mean Corpuscular Hemoglobin 28.3 PG (27.0-31.0) Mean Corpuscular Hemoglobin Concent 31.9 G/DL (32.0-36.0) L Red Cell Distribution Width 16.3 % (11.6-14.8) H Platelet Count 203 K/UL (150-450) Mean Platelet Volume 7.2 FL (6.5-10.1) Neutrophils (%) (Auto) % (45.0-75.0) Lymphocytes (%) (Auto) % (20.0-45.0) Monocytes (%) (Auto) % (1.0-10.0) Eosinophils (%) (Auto) % (0.0-3.0) Basophils (%) (Auto) % (0.0-2.0) Neutrophils % (Manual) Pending Lymphocytes % (Manual) Pending Platelet Estimate Pending Platelet Morphology Pending Sodium Level 136 MMOL/L (136-145) Potassium Level 3.8 MMOL/L (3.5-5.1) Chloride Level 104 MMOL/L (98-107) Carbon Dioxide Level 25 MMOL/L (21-32) Anion Gap 7 mmol/L (5-15) Blood Urea Nitrogen 22 mg/dL (7-18) H Creatinine 0.7 MG/DL (0.55-1.30) Estimat Glomerular Filtration Rate > 60 mL/min (>60) Glucose Level 165 MG/DL (74-106) H Calcium Level 7.9 MG/DL (8.5-10.1) L Phosphorus Level 2.7 MG/DL (2.5-4.9) Iron Level 23 ug/dL (50-175) L Total Iron Binding Capacity 131 ug/dL (250-450) L Percent Iron Saturation 18 % (15-50) Unsaturated Iron Binding 108 ug/dL (112-346) L Ferritin 852 NG/ML (8-388) H Troponin I 0.043 ng/mL (0.000-0.056) Pro-B-Type Natriuretic Peptide 6376 pg/mL (0-125) H Current Medications Medications (Trade) Dose Ordered Sig/Raji Route PRN Reason Start Time Stop Time Status Last Admin Dose Admin Acetaminophen (Tylenol) 650 mg Q4H PRN ORAL FEVER 12/06/20 13:30 01/05/21 13:29 Acetaminophen (Tylenol) 650 mg Q4H PRN ORAL Mild Pain (Pain Scale 1-3) 12/06/20 13:30 01/05/21 13:29 Aspirin (Ecotrin) 81 mg DAILY ORAL 12/07/20 09:00 01/21/21 08:59 Atorvastatin Calcium (Lipitor) 20 mg BEDTIME ORAL 12/06/20 21:00 03/06/21 20:59 Azithromycin 500 mg/Dextrose 275 ml @ 275 mls/hr Q24HRS IV 12/06/20 15:00 12/12/20 15:59 12/06/20 15:52 Ceftriaxone Sodium 1 gm/ Dextrose 55 ml @ 110 mls/hr Q24H IVPB 12/06/20 14:00 12/13/20 13:59 12/06/20 17:00 Dexamethasone Sodium Phosphate (Decadron 10mg/ ml Inj) 6 mg DAILY IV 12/07/20 09:00 12/16/20 08:59 12/07/20 08:10 Dextrose/Sodium Chloride 1,000 ml @ 75 mls/hr [id number] IV 12/06/20 13:30 01/05/21 13:29 12/07/20 02:00 Heparin Sodium (Porcine) (Heparin 5000 units/ml) 5,000 units EVERY 12 HOURS SUBQ 12/07/20 09:00 01/21/21 08:59 Sodium Hypochlorite (Dakin's Quarter Strength) 1 applic DAILY TOPIC 12/07/20 09:00 01/06/21 08:59 Nick Cook MD Dec 07, 2020 09:03
--- NOTE | 2020-12-07 09:35 | NUR ---
NURSE NOTES: Seen by Dr. Yasmine Cook and assessed patient. No Remdesivir ordered.
[2020-12-07] MEDS ORDERED: Dakin's 0.25% (Half Strength) 16oz TOPIC SCH (10:15)
--- NOTE | 2020-12-07 10:22 | Cardiac Electrophysiology PN ---
Assessment/Plan Assessment/Plan 1. Elevated troponin of 0.059. The patient does not have renal failure. This could be due to COVID pneumonia. 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 On aspirin and metoprolol and Lipitor. EF 55% on echocardiogram 2. Right bundle-branch block. 3. Sinus tachycardia at 113 due to the patient's COVID pneumonia. 4. COVID pneumonia respiratory failure on the vent and dexamethasone, azithromycin, and ceftriaxone. Subjective Subjective Coded for high CO2 and resp failure, intubated in ICU on 40% Fio2 off pressors in covid isolation Off restraints and no sedation Objective Last 24 Hour Vital Signs Date Time Temp Pulse Resp B/P (MAP) Pulse Ox O2 Delivery O2 Flow Rate FiO2 12/07/20 07:00 106 15 138/67 (90) 100 12/07/20 06:00 95 18 110/58 (75) 96 12/07/20 05:00 89 15 110/56 (74) 98 12/07/20 04:00 Mechanical Ventilator 12/07/20 04:00 95 12/07/20 04:00 50 12/07/20 04:00 98.4 93 15 99/55 (70) 99 12/07/20 03:56 100 22 50 12/07/20 03:00 89 16 116/64 (81) 100 12/07/20 02:00 91 17 109/58 (75) 100 12/07/20 01:00 89 15 101/49 (66) 99 12/07/20 00:00 123 12/07/20 00:00 98.7 101 22 117/57 (77) 97 12/07/20 00:00 Mechanical Ventilator 12/06/20 23:19 94 20 60 12/06/20 23:00 102 19 140/74 (96) 100 12/06/20 22:00 85 15 116/67 (83) 100 12/06/20 21:00 99 19 119/57 (77) 100 12/06/20 20:00 98.3 96 16 110/65 (80) 100 12/06/20 20:00 Mechanical Ventilator 12/06/20 20:00 80 12/06/20 19:22 129 38 80 12/06/20 19:19 96 18 80 12/06/20 19:00 80 14 110/57 (74) 100 12/06/20 18:00 99.4 76 17 102/64 (77) 100 12/06/20 17:53 100 12/06/20 17:30 75 12/06/20 17:02 87 16 99 Mechanical Ventilator 100 12/06/20 17:02 87 16 100 12/06/20 16:16 120 12/06/20 16:00 98.7 89 17 129/72 (91) 98 12/06/20 16:00 Bi-pap 12/06/20 15:33 111 12/06/20 15:21 117 20 96 100 12/06/20 12:23 Bi-pap 12/06/20 11:58 75 12/06/20 11:20 67 17 97 Bi-Pap 100 12/06/20 11:20 67 17 97 100 12/06/20 11:15 98.3 84 23 143/76 100 Bi-pap 15.0 100 12/06/20 11:02 98.3 84 23 143/76 100 Bi-pap 15.0 100 Intake and Output 12/06/20 12/07/20 19:00 07:00 Intake Total 1180 ml 825 ml Output Total 100 ml 370 ml Balance 1080 ml 455 ml Intake IV Total 1180 ml 825 ml Output Urine Total 100 ml 370 ml Laboratory Tests Test 12/06/20 14:45 12/06/20 19:25 12/07/20 04:05 Magnesium Level 1.9 MG/DL (1.8-2.4) 1.8 MG/DL (1.8-2.4) Arterial Blood pH 7.479 (7.350-7.450) Arterial Blood Partial Pressure CO2 28.3 mmHg (35.0-45.0) L Arterial Blood Partial Pressure O2 163.2 mmHg (75.0-100.0) H Arterial Blood HCO3 20.6 mmol/L (22.0-26.0) L Arterial Blood Oxygen Saturation 98.3 % (95-100) Arterial Blood Base Excess -2.3 (-2-2) L Cristian Test Positive White Blood Count 9.5 K/UL (4.8-10.8) Red Blood Count 2.62 M/UL (4.20-5.40) L Hemoglobin 7.4 G/DL (12.0-16.0) L Hematocrit 23.2 % (37.0-47.0) L Mean Corpuscular Volume 89 FL (80-99) Mean Corpuscular Hemoglobin 28.3 PG (27.0-31.0) Mean Corpuscular Hemoglobin Concent 31.9 G/DL (32.0-36.0) L Red Cell Distribution Width 16.3 % (11.6-14.8) H Platelet Count 203 K/UL (150-450) Mean Platelet Volume 7.2 FL (6.5-10.1) Neutrophils (%) (Auto) % (45.0-75.0) Lymphocytes (%) (Auto) % (20.0-45.0) Monocytes (%) (Auto) % (1.0-10.0) Eosinophils (%) (Auto) % (0.0-3.0) Basophils (%) (Auto) % (0.0-2.0) Differential Total Cells Counted 100 Neutrophils % (Manual) 84 % (45-75) H Lymphocytes % (Manual) 12 % (20-45) L Monocytes % (Manual) 4 % (1-10) Eosinophils % (Manual) 0 % (0-3) Basophils % (Manual) 0 % (0-2) Band Neutrophils 0 % (0-8) Platelet Estimate Adequate Platelet Morphology Normal Hypochromasia 2+ Anisocytosis 2+ Sodium Level 136 MMOL/L (136-145) Potassium Level 3.8 MMOL/L (3.5-5.1) Chloride Level 104 MMOL/L (98-107) Carbon Dioxide Level 25 MMOL/L (21-32) Anion Gap 7 mmol/L (5-15) Blood Urea Nitrogen 22 mg/dL (7-18) H Creatinine 0.7 MG/DL (0.55-1.30) Estimat Glomerular Filtration Rate > 60 mL/min (>60) Glucose Level 165 MG/DL (74-106) H Calcium Level 7.9 MG/DL (8.5-10.1) L Phosphorus Level 2.7 MG/DL (2.5-4.9) Iron Level 23 ug/dL (50-175) L Total Iron Binding Capacity 131 ug/dL (250-450) L Percent Iron Saturation 18 % (15-50) Unsaturated Iron Binding 108 ug/dL (112-346) L Ferritin 852 NG/ML (8-388) H Troponin I 0.043 ng/mL (0.000-0.056) Pro-B-Type Natriuretic Peptide 6376 pg/mL (0-125) H Microbiology Date/Time Source Procedure Growth Status 12/06/20 03:45 Nasal Nares - Final Complete 12/06/20 03:45 Nasal Nares - Final Complete Objective HEAD AND NECK: No JVD.Orally intubated LUNGS: Coarse rhonchi. CARDIOVASCULAR: Regular S1 and S2 with no gallop. ABDOMEN: Soft. EXTREMITIES: No pitting edema. Rowdy Palomino MD Dec 07, 2020 10:22
--- NOTE | 2020-12-07 10:45 | NUR ---
NURSE NOTES: Seen by Dr. Kyle and assessed patient. Updated patient's status. Ordered 2 units of pRBC. Will continue plan of care.
--- NOTE | 2020-12-07 10:51 | NUR ---
RD ASSESSMENT & RECOMMENDATIONS SEE CARE ACTIVITY FOR COMPLETE ASSESSMENT DAILY ESTIMATED NEEDS: Needs based on Critical care, wound 56.6kg abw 25-30 kcals/kg [id number] total kcals 1.25-2 g protein/kg 71-113 g total protein 25-30 mL/kg 7496-7192 total fluid mLs NUTRITION DIAGNOSIS: Increased kcal and pro needs r/t wound care as evidenced by multiples areas of skin breakdown, including full thickness sacral wound. CURRENT TF: NPO ENTERAL NUTRITION RECOMMENDATIONS: As able, Glucerna 1.5 goal of 45ml/hr x24 hrs to provide 1080ml, 1620 kcal, 89g pro, 820ml free H2O - NGT noted, rec non oral feeds if hemodynamically stable. - Start @15ml/hr for 6 hrs, advance as tolerated 10ml/hr q4-6 hrs to goal. - Flush per MD. HOB over 30 degrees - Will provide 100% est kcal/pro needs when at goal. ADDITIONAL RECOMMENDATIONS: 1) Feed with hemodynamic stability- TF recs as above 2) Obtain a calibrated bed scale wt 3) Niss / accuchecks for BG control 4) Monitor lytes, replete as needed 5) With TF at goal add SHREE BID -> WC add Vit C 500mg BID, Zn SO4 220mg qdaily x10 days
--- NOTE | 2020-12-07 11:36 | Pulmonology Progress Note ---
Subjective ROS Limited/Unobtainable: Yes Interval Events: Intubated Constitutional: Reports: no symptoms, other - transferred to ICU HEENT: Repors: no symptoms Respiratory: Reports: no symptoms Cardiovascular: Reports: no symptoms Gastrointestinal/Abdominal: Reports: no symptoms Genitourinary: Reports: no symptoms Allergies: Coded Allergies: No Known Allergies (Unverified , 12/06/20) Objective Last 24 Hour Vital Signs Date Time Temp Pulse Resp B/P (MAP) Pulse Ox O2 Delivery O2 Flow Rate FiO2 12/07/20 07:19 93 22 40 12/07/20 07:00 106 15 138/67 (90) 100 12/07/20 06:00 95 18 110/58 (75) 96 12/07/20 05:00 89 15 110/56 (74) 98 12/07/20 04:00 Mechanical Ventilator 12/07/20 04:00 95 12/07/20 04:00 50 12/07/20 04:00 98.4 93 15 99/55 (70) 99 12/07/20 03:56 100 22 50 12/07/20 03:00 89 16 116/64 (81) 100 12/07/20 02:00 91 17 109/58 (75) 100 12/07/20 01:00 89 15 101/49 (66) 99 12/07/20 00:00 123 12/07/20 00:00 98.7 101 22 117/57 (77) 97 12/07/20 00:00 Mechanical Ventilator 12/06/20 23:19 94 20 60 12/06/20 23:00 102 19 140/74 (96) 100 12/06/20 22:00 85 15 116/67 (83) 100 12/06/20 21:00 99 19 119/57 (77) 100 12/06/20 20:00 98.3 96 16 110/65 (80) 100 12/06/20 20:00 Mechanical Ventilator 12/06/20 20:00 80 12/06/20 19:22 129 38 80 12/06/20 19:19 96 18 80 12/06/20 19:00 80 14 110/57 (74) 100 12/06/20 18:00 99.4 76 17 102/64 (77) 100 12/06/20 17:53 100 12/06/20 17:30 75 12/06/20 17:02 87 16 99 Mechanical Ventilator 100 12/06/20 17:02 87 16 100 12/06/20 16:16 120 12/06/20 16:00 98.7 89 17 129/72 (91) 98 12/06/20 16:00 Bi-pap 12/06/20 15:33 111 12/06/20 15:21 117 20 96 100 12/06/20 12:23 Bi-pap 12/06/20 11:58 75 Intake and Output 12/06/20 12/07/20 19:00 07:00 Intake Total 1180 ml 825 ml Output Total 100 ml 370 ml Balance 1080 ml 455 ml Intake IV Total 1180 ml 825 ml Output Urine Total 100 ml 370 ml General Appearance: no acute distress HEENT: normocephalic Respiratory: chest wall non-tender Cardiovascular: normal peripheral pulses, normal rate Abdomen: normal bowel sounds Extremities: no cyanosis Microbiology Date/Time Source Procedure Growth Status 12/06/20 03:45 Nasal Nares - Final Complete 12/06/20 03:45 Nasal Nares - Final Complete Laboratory Tests 12/06/20 14:45: Magnesium Level 1.9 12/06/20 19:25: Arterial Blood pH 7.479H, Arterial Blood Partial Pressure CO2 28.3L, Arterial Blood Partial Pressure O2 163.2H, Arterial Blood HCO3 20.6L, Arterial Blood Oxygen Saturation 98.3, Arterial Blood Base Excess -2.3L, Cristian Test Positive 12/07/20 04:05: Magnesium Level 1.8, White Blood Count 9.5, Red Blood Count 2.62L, Hemoglobin 7.4L, Hematocrit 23.2L, Mean Corpuscular Volume 89, Mean Corpuscular Hemoglobin 28.3, Mean Corpuscular Hemoglobin Concent 31.9L, Red Cell Distribution Width 16.3H, Platelet Count 203, Mean Platelet Volume 7.2, Neutrophils (%) (Auto) , Lymphocytes (%) (Auto) , Monocytes (%) (Auto) , Eosinophils (%) (Auto) , Basophils (%) (Auto) , Differential Total Cells Counted 100, Neutrophils % (Manual) 84H, Lymphocytes % (Manual) 12L, Monocytes % (Manual) 4, Eosinophils % (Manual) 0, Basophils % (Manual) 0, Band Neutrophils 0, Platelet Estimate Adequate, Platelet Morphology Normal, Hypochromasia 2+, Anisocytosis 2+, Sodium Level 136, Potassium Level 3.8, Chloride Level 104, Carbon Dioxide Level 25, Anion Gap 7, Blood Urea Nitrogen 22H, Creatinine 0.7, Estimat Glomerular Filtration Rate > 60, Glucose Level 165H, Calcium Level 7.9L, Phosphorus Level 2.7, Iron Level 23L, Total Iron Binding Capacity 131L, Percent Iron Saturation 18, Unsaturated Iron Binding 108L, Ferritin 852H, Troponin I 0.043, Pro-B-Type Natriuretic Peptide 6376H Current Medications Medications (Trade) Dose Ordered Sig/Raji Route PRN Reason Start Time Stop Time Status Last Admin Dose Admin Acetaminophen (Tylenol) 650 mg Q4H PRN ORAL FEVER 12/06/20 13:30 01/05/21 13:29 Acetaminophen (Tylenol) 650 mg Q4H PRN ORAL Mild Pain (Pain Scale 1-3) 12/06/20 13:30 01/05/21 13:29 Aspirin (Ecotrin) 81 mg DAILY ORAL 12/07/20 09:00 01/21/21 08:59 Atorvastatin Calcium (Lipitor) 20 mg BEDTIME ORAL 12/06/20 21:00 03/06/21 20:59 Azithromycin 500 mg/Dextrose 275 ml @ 275 mls/hr Q24HRS IV 12/06/20 15:00 12/12/20 15:59 12/06/20 15:52 Ceftriaxone Sodium 1 gm/ Dextrose 55 ml @ 110 mls/hr Q24H IVPB 12/06/20 14:00 12/13/20 13:59 12/06/20 17:00 Dexamethasone Sodium Phosphate (Decadron 10mg/ ml Inj) 6 mg DAILY IV 12/07/20 09:00 12/16/20 08:59 12/07/20 08:10 Dextrose/Sodium Chloride 1,000 ml @ 75 mls/hr [id number] IV 12/06/20 13:30 01/05/21 13:29 12/07/20 02:00 Heparin Sodium (Porcine) (Heparin 5000 units/ml) 5,000 units EVERY 12 HOURS SUBQ 12/07/20 09:00 01/21/21 08:59 Sodium Hypochlorite (Dakin's Half Strength) 1 applic DAILY TOPIC 12/07/20 10:15 01/06/21 10:14 12/07/20 10:54 Assessment/Plan Assessment/Plan 1. COVID-19 pneumonia with hypoxia -Continue broad-spectrum antibiotics for pneumonia coverage -Continue with dexamethasone given hypoxia 2. Elevated inflammatory markers Lovenox for DVT prophylaxis 3. Respiratory Failure -Now intubated -Continue AC mode; FiO2 40%; PEEP 5; rate 16; Vt 400; check ABg Leukocytosis Anemia Hyperglycemia Troponin leak Elevated BNP RASHMI Wei Kyle MD Dec 07, 2020 11:36
[2020-12-07] MEDS: Narcotic Shift Volume MISC SCH (11:53)
--- NOTE | 2020-12-07 12:20 | NUR ---
NURSE NOTES: Talked with Karin Whitfield/Daughter. She refused blood transfusion. Explained benefits and risks x3. Still refused. She said she will think about code status as well. She will call us again.
--- NOTE | 2020-12-07 14:56 | NUR ---
CASE MANAGEMENT:INITIAL REVIEW 75 YR OLD FEMALE BIBA FROM [facility] CC;DYSPNEA. RESPIRATORY DISTRESS SI;COVID PNEUMONIA. RESPIRATORY FAILURE. RBBB. 99.7 130 36 160/89 96% ON Bi-PAP WBC+ 13.3 BUN+ 20 GLU+ 154 MAG- 1.5 FERRITIN+ 660 LDH+ 309 TROP+ 0.059 CRP+ 14.0 BNP+ 8374 ALB- 1.7 PT+ 12.0 D-DIMER+ 6.00 UA+ PROTEIN, BLOOD, UROBILINOGEN, LEUKOCYTE ESTERASE, RBC, WBC, SQUAMOUS EPITH CELLS, BACTERIA, YEAST CXR ~ Extensive bilateral infiltrates which may be related to multifocal pneumonia, including COVID pneumonia. Please correlate clinically. IS;ZOSYN IV DECADRON IV TYLENOL RECTAL LOVENOX SQ MAG SULFATE IV IVF NS BOLUS ADMITTED TO ICU ICU STATUS DCP;PENDING HOSPITAL STAY
--- NOTE | 2020-12-07 17:41 | NUR ---
NURSE NOTES: Talked with Karin/Daughter. She can come to see patient. She said okay to extubate patient.
--- NOTE | 2020-12-07 18:02 | NUR ---
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
--- NOTE | 2020-12-07 18:12 | NUR ---
NURSE NOTES: Clarified morphine order. Ordered morphine 0.5mg/hr IV after extubation.
[2020-12-07] MEDS ORDERED: PCA Morphine 1mg/ml 30 ML IV PRN (18:15)
--- NOTE | 2020-12-07 18:15 | Surgery Progress Note ---
Surgery Progress Note Subjective Additional Comments ill appearing in icu lab snoted dressings changed Objective Last 24 Hour Vital Signs Date Time Temp Pulse Resp B/P (MAP) Pulse Ox O2 Delivery O2 Flow Rate FiO2 12/07/20 16:00 Mechanical Ventilator 12/07/20 16:00 40 12/07/20 15:08 144 28 40 12/07/20 15:00 106 17 137/71 (93) 97 12/07/20 14:00 86 17 118/74 (89) 97 12/07/20 13:00 94 18 132/78 (96) 97 12/07/20 12:00 Mechanical Ventilator 12/07/20 12:00 50 12/07/20 12:00 81 12/07/20 12:00 89 17 114/72 (86) 96 12/07/20 11:28 80 24 40 12/07/20 11:00 97 21 116/65 (82) 97 12/07/20 10:00 87 16 125/65 (85) 98 12/07/20 09:00 98.0 101 22 106/69 (81) 97 12/07/20 08:00 103 22 114/63 (80) 97 12/07/20 08:00 103 12/07/20 08:00 50 12/07/20 08:00 Mechanical Ventilator 12/07/20 07:19 93 22 40 12/07/20 07:00 106 15 138/67 (90) 100 12/07/20 06:00 95 18 110/58 (75) 96 12/07/20 05:00 89 15 110/56 (74) 98 12/07/20 04:00 Mechanical Ventilator 12/07/20 04:00 95 12/07/20 04:00 50 12/07/20 04:00 98.4 93 15 99/55 (70) 99 12/07/20 03:56 100 22 50 12/07/20 03:00 89 16 116/64 (81) 100 12/07/20 02:00 91 17 109/58 (75) 100 12/07/20 01:00 89 15 101/49 (66) 99 12/07/20 00:00 123 12/07/20 00:00 98.7 101 22 117/57 (77) 97 12/07/20 00:00 Mechanical Ventilator 12/06/20 23:19 94 20 60 12/06/20 23:00 102 19 140/74 (96) 100 12/06/20 22:00 85 15 116/67 (83) 100 12/06/20 21:00 99 19 119/57 (77) 100 12/06/20 20:00 98.3 96 16 110/65 (80) 100 12/06/20 20:00 Mechanical Ventilator 12/06/20 20:00 80 12/06/20 19:22 129 38 80 12/06/20 19:19 96 18 80 12/06/20 19:00 80 14 110/57 (74) 100 I&O Intake and Output 12/06/20 12/07/20 19:00 07:00 Intake Total 1180 ml 825 ml Output Total 100 ml 370 ml Balance 1080 ml 455 ml Intake IV Total 1180 ml 825 ml Output Urine Total 100 ml 370 ml Dressing: saturated Cardiovascular: RSR Respiratory: decreased breath sounds Abdomen: non-tender, present bowel sounds Extremities: no tenderness, no cyanosis Laboratory Tests Test 12/06/20 19:25 12/07/20 04:05 12/07/20 13:22 Arterial Blood pH 7.479 (7.350-7.450) 7.494 (7.350-7.450) Arterial Blood Partial Pressure CO2 28.3 mmHg (35.0-45.0) L 32.0 mmHg (35.0-45.0) L Arterial Blood Partial Pressure O2 163.2 mmHg (75.0-100.0) H 78.0 mmHg (75.0-100.0) Arterial Blood HCO3 20.6 mmol/L (22.0-26.0) L 24.1 mmol/L (22.0-26.0) Arterial Blood Oxygen Saturation 98.3 % (95-100) 95.0 % (95-100) Arterial Blood Base Excess -2.3 (-2-2) L 1.0 (-2-2) Cristian Test Positive Positive White Blood Count 9.5 K/UL (4.8-10.8) Red Blood Count 2.62 M/UL (4.20-5.40) L Hemoglobin 7.4 G/DL (12.0-16.0) L Hematocrit 23.2 % (37.0-47.0) L Mean Corpuscular Volume 89 FL (80-99) Mean Corpuscular Hemoglobin 28.3 PG (27.0-31.0) Mean Corpuscular Hemoglobin Concent 31.9 G/DL (32.0-36.0) L Red Cell Distribution Width 16.3 % (11.6-14.8) H Platelet Count 203 K/UL (150-450) Mean Platelet Volume 7.2 FL (6.5-10.1) Neutrophils (%) (Auto) % (45.0-75.0) Lymphocytes (%) (Auto) % (20.0-45.0) Monocytes (%) (Auto) % (1.0-10.0) Eosinophils (%) (Auto) % (0.0-3.0) Basophils (%) (Auto) % (0.0-2.0) Differential Total Cells Counted 100 Neutrophils % (Manual) 84 % (45-75) H Lymphocytes % (Manual) 12 % (20-45) L Monocytes % (Manual) 4 % (1-10) Eosinophils % (Manual) 0 % (0-3) Basophils % (Manual) 0 % (0-2) Band Neutrophils 0 % (0-8) Platelet Estimate Adequate Platelet Morphology Normal Hypochromasia 2+ Anisocytosis 2+ Sodium Level 136 MMOL/L (136-145) Potassium Level 3.8 MMOL/L (3.5-5.1) Chloride Level 104 MMOL/L (98-107) Carbon Dioxide Level 25 MMOL/L (21-32) Anion Gap 7 mmol/L (5-15) Blood Urea Nitrogen 22 mg/dL (7-18) H Creatinine 0.7 MG/DL (0.55-1.30) Estimat Glomerular Filtration Rate > 60 mL/min (>60) Glucose Level 165 MG/DL (74-106) H Calcium Level 7.9 MG/DL (8.5-10.1) L Phosphorus Level 2.7 MG/DL (2.5-4.9) Magnesium Level 1.8 MG/DL (1.8-2.4) Iron Level 23 ug/dL (50-175) L Total Iron Binding Capacity 131 ug/dL (250-450) L Percent Iron Saturation 18 % (15-50) Unsaturated Iron Binding 108 ug/dL (112-346) L Ferritin 852 NG/ML (8-388) H Troponin I 0.043 ng/mL (0.000-0.056) Pro-B-Type Natriuretic Peptide 6376 pg/mL (0-125) H Plan Problems: (1) Hypoxia Assessment & Plan: leukocytosis anemia covid elevated d dimer pulm consult oxygen steroids? abx (2) Bilateral pneumonia (3) Coronavirus infection, unspecified (4) Decubitus skin ulcer Assessment & Plan: Patient identified admission of multiple decubitus skin ulcers and deep tissue injury. Patient evaluated pictures taken care plan initiated nutritional optimization. Turn every 2 hours hospital protocol initiated for decubitus prevention and care plan. Apply with recommendations. Thank you for let me participate patient's care Rafal Stoll Dec 07, 2020 18:15
[2020-12-07] MEDS ORDERED: DONEPEZIL HCL5 MG ORAL (18:29)
[2020-12-07] MEDS ORDERED: ALPRAZOLAM OD0.25 MG ORAL (18:29)
[2020-12-07] MEDS ORDERED: ZYPREXA5 MG ORAL (18:29)
[2020-12-07] MEDS ORDERED: Rate Change Narcotic Drip MISC PRN (18:30)
--- NOTE | 2020-12-07 19:15 | NUR ---
HAND-OFF: Report given to FREDERICK Lemus. Endorsed plan of care.
--- NOTE | 2020-12-07 19:30 | NUR ---
NURSE NOTES: received report from haylee nunez pt sedated with driprivan drip at 5mcg/kg/per hr -2 celso pt orally intubated -vent no acute resp distress noted tolerating tube feeding no residual urnary output good reposition and suction iv infusing well dressing dry and intact Addendum: 12/07/20 at 1950 by BANG ENNIS RN wrong pt
--- NOTE | 2020-12-07 19:51 | NUR ---
NURSE NOTES: pt DNR -DNI FOR TERMINAL EXTUBATION AND TRANSFER MED-SURG FLOOR
[2020-12-07] MEDS ORDERED: D5 1/2NS 1000ml IV ONE (20:32)
[2020-12-07] MEDS ORDERED: Tubing IV Secondary IV ONE (20:32)
--- NOTE | 2020-12-07 22:36 | NUR ---
NURSE HAND-OFF REPORT: Latest Vital Signs: Temperature 98.8 , Pulse 99 , B/P 119 /75 , Respiratory Rate 17 , O2 SAT 97 , Venturi Mask, O2 Flow Rate 15.0 . Vital Sign Comment: EKG Rhythm: Sinus Rhythm Rhythm change?: N Notified?: Ishaan Vázquez MD Response: Order Received& Read Back Latest [place] Fall Score: 50 Fall Risk: High Risk Safety Measures: Call light Within Reach, Bed Alarm Zone 1, Side Rails Side Rails x2, Bed position Low and Locked. Fall Precautions: Yellow Socks Yellow Gown Door Sign Patient Fall Education Report given to [facility] rn using sbar.
[2020-12-08] VITALS: BP 115/75
[2020-12-08] MEDS: Narcotic Shift Volume MISC SCH ×2 (07:00→19:00)
[2020-12-08 07:06] LABS: BASOPHILS % (AUTO) 0.1 % (0.0-2.0); HEMOGLOBIN 8.3 G/DL (12.0-16.0); LYMPHOCYTES % (AUTO) 12.9 % (20.0-45.0); MEAN CORPUSCULAR VOLUME 89 FL (80-99); MONOCYTES % (AUTO) 6.9 % (1.0-10.0); PLATELET COUNT 208 K/UL (150-450); RED BLOOD COUNT 2.92 M/UL (4.20-5.40); RED CELL DISTRIBUTION WIDTH 15.6 % (11.6-14.8); WHITE BLOOD COUNT 10.9 K/UL (4.8-10.8)
--- NOTE | 2020-12-08 07:30 | NUR ---
NURSE NOTES: Patient lying in bed sleeping. No signs and symptoms of pain or distress at this time. On nonrebreather 15L and EAP CONSULTANT Morphine for comfort measure. NGT clamped. IV dressing intact and dry. Wound dressing intact and dry. Oneal catheter patent and draining well. Bed lowest position and side rails up. Call light within reach. Will continue to monitor.
--- NOTE | 2020-12-08 07:44 | NUR ---
NURSE HAND-OFF: Important Events on Shift: patient was transferred from ICU to , report received from FREDERICK Loera. patient on nonrebreather 15L, no acute respiratory distress noted. NGT clamped. Patient on comfort measure, started Morphine continuous at 0.5 mg/hr, verified with FREDERICK Stephens, started with 27.6mg in tubing, 23.7mg at shift change. performed wound care, wound pictures taken and uploaded. VSS throughout shift. Patient Status: stable Diet: NPO Pending Orders: N/A Pending Results/Labs: N/A Pending MD notification: N/A Latest Vital Signs: Temperature 98.1 , Pulse 82 , B/P 115 /75 , Respiratory Rate 17 , O2 SAT 99 , Venturi Mask, O2 Flow Rate 15.0 . Vital Sign Comment: stable Latest Edmonds Fall Score: 50 Fall Risk: High Risk Safety Measures: Call light Within Reach, Bed Alarm Zone 1, Side Rails Side Rails x2, Bed position Low and Locked. Fall Precautions: Yellow Socks Yellow Gown Door Sign Patient Fall Education Report given to FREDERICK Portillo.
[2020-12-08 08:00] VITALS: BP 129/84
[2020-12-08 08:22] LABS: ALANINE AMINOTRANSFERASE 20 U/L (12-78); ALBUMIN 1.7 G/DL (3.4-5.0); ALBUMIN/GLOBULIN RATIO 0.4 (1.0-2.7); ALKALINE PHOSPHATASE 189 U/L (46-116); ANION GAP 8 mmol/L (5-15); ASPARTATE AMINO TRANSFERASE 26 U/L (15-37); BILIRUBIN,TOTAL 0.5 MG/DL (0.2-1.0); BLOOD UREA NITROGEN 18 mg/dL (7-18); CALCIUM 8.3 MG/DL (8.5-10.1); CARBON DIOXIDE 25 MMOL/L (21-32); CHLORIDE 107 MMOL/L (98-107); CREATININE 0.7 MG/DL (0.55-1.30); PHOSPHORUS 2.5 MG/DL (2.5-4.9); POTASSIUM 3.6 MMOL/L (3.5-5.1); SODIUM 140 MMOL/L (136-145)
--- NOTE | 2020-12-08 08:54 | Pulmonology Progress Note ---
Subjective ROS Limited/Unobtainable: Yes Interval Events: now DNR/DNI with s/p terminal extubation Constitutional: Reports: no symptoms, other - transferred to Med/surg HEENT: Repors: no symptoms Respiratory: Reports: no symptoms Cardiovascular: Reports: no symptoms Gastrointestinal/Abdominal: Reports: no symptoms Genitourinary: Reports: no symptoms Allergies: Coded Allergies: No Known Allergies (Unverified , 12/06/20) Objective Last 24 Hour Vital Signs Date Time Temp Pulse Resp B/P (MAP) Pulse Ox O2 Delivery O2 Flow Rate FiO2 12/08/20 00:00 98.1 82 17 115/75 (88) 99 12/07/20 22:00 99 17 119/75 (90) 97 12/07/20 21:00 99 17 119/75 (90) 97 12/07/20 21:00 40 12/07/20 21:00 85 12/07/20 20:00 Mechanical Ventilator Non-Rebreather 12/07/20 20:00 98.8 104 19 138/73 (94) 99 12/07/20 19:10 82 17 40 12/07/20 19:00 87 19 109/55 (73) 96 12/07/20 18:00 135 23 127/74 (91) 90 12/07/20 17:00 82 17 113/61 (78) 97 12/07/20 16:00 98.2 85 17 116/59 (78) 97 12/07/20 16:00 85 12/07/20 16:00 Mechanical Ventilator 12/07/20 16:00 40 12/07/20 15:08 144 28 40 12/07/20 15:00 106 17 137/71 (93) 97 12/07/20 14:00 86 17 118/74 (89) 97 12/07/20 13:00 94 18 132/78 (96) 97 12/07/20 12:00 Mechanical Ventilator 12/07/20 12:00 50 12/07/20 12:00 81 12/07/20 12:00 89 17 114/72 (86) 96 12/07/20 12:00 98.4 89 17 114/72 (86) 96 12/07/20 11:28 80 24 40 12/07/20 11:00 97 21 116/65 (82) 97 12/07/20 10:00 87 16 125/65 (85) 98 12/07/20 09:20 Venturi Mask 100 12/07/20 09:00 98.0 101 22 106/69 (81) 97 Intake and Output 12/07/20 12/08/20 19:00 07:00 Intake Total 2.5 ml Output Total 590 ml 230 ml Balance -590 ml -227.5 ml Intake IV Total 2.5 ml Output Urine Total 590 ml 230 ml General Appearance: no acute distress HEENT: normocephalic Respiratory: chest wall non-tender Cardiovascular: normal peripheral pulses, normal rate Abdomen: normal bowel sounds Extremities: no cyanosis Microbiology Date/Time Source Procedure Growth Status 12/06/20 03:45 Indwelling Cath Urine Culture - Final Enterococcus Faecium - Vre Complete 12/06/20 03:45 Nasal Nares MRSA Culture - Final NO METHICILLIN RESISTANT STAPH AUREUS... Complete 12/06/20 03:45 Nasal Nares - Final Complete 12/06/20 03:45 Nasal Nares - Final Complete 12/06/20 03:45 Blood Blood Culture - Preliminary NO GROWTH AFTER 24 HOURS Resulted 12/06/20 03:30 Blood Blood Culture - Preliminary NO GROWTH AFTER 24 HOURS Resulted Laboratory Tests 12/07/20 13:22: Arterial Blood pH 7.494H, Arterial Blood Partial Pressure CO2 32.0L, Arterial Blood Partial Pressure O2 78.0, Arterial Blood HCO3 24.1, Arterial Blood Oxygen Saturation 95.0, Arterial Blood Base Excess 1.0, Cristian Test Positive 12/08/20 06:30: White Blood Count 10.9H, Red Blood Count 2.92L, Hemoglobin 8.3L, Hematocrit 26.0L, Mean Corpuscular Volume 89, Mean Corpuscular Hemoglobin 28.3, Mean Corpuscular Hemoglobin Concent 31.8L, Red Cell Distribution Width 15.6H, Platelet Count 208, Mean Platelet Volume 7.3, Neutrophils (%) (Auto) 80.0H, Lymphocytes (%) (Auto) 12.9L, Monocytes (%) (Auto) 6.9, Eosinophils (%) (Auto) 0.0, Basophils (%) (Auto) 0.1, Sodium Level 140, Potassium Level 3.6, Chloride Level 107, Carbon Dioxide Level 25, Anion Gap 8, Blood Urea Nitrogen 18, Creatinine 0.7, Estimat Glomerular Filtration Rate > 60, Glucose Level 102, Calcium Level 8.3L, Phosphorus Level 2.5, Magnesium Level 1.7L, Total Bilirubin 0.5, Aspartate Amino Transf (AST/SGOT) 26, Alanine Aminotransferase (ALT/SGPT) 20, Alkaline Phosphatase 189H, Total Protein 5.8L, Albumin 1.7L, Globulin 4.1, Albumin/Globulin Ratio 0.4L Current Medications Medications (Trade) Dose Ordered Sig/Raji Route PRN Reason Start Time Stop Time Status Last Admin Dose Admin Miscellaneous Medication (Narcotic Drip Rate Change) 1 ea DAILY PRN MISC . 12/07/20 18:30 01/06/21 18:29 Miscellaneous Medication (Narcotic Shift Volume) 1 ea Q12HR@0700,1900 MISC 12/07/20 19:00 01/06/21 18:59 12/08/20 07:00 Morphine Sulfate 30 ml @ 0.5 mls/hr [employer]IFE Protocol PRN IV COMFORT CARE 12/07/20 18:15 12/09/20 18:14 12/07/20 23:47 Assessment/Plan Assessment/Plan 1. COVID-19 pneumonia with hypoxia; initial testing from outside source -now off broad-spectrum antibiotics, dexamethasone - In-house COVID-19 PCR result pending 2. Elevated inflammatory markers - Lovenox for DVT prophylaxis 3. Respiratory Failure -Now terminally extubated, DNR/DNI - now on NRB saturating at 98% - continue supplemental oxygen to keep SaO2 >90% Leukocytosis - improving Anemia - stable H&H Hyperglycemia Troponin leak Elevated BNP RASHMI DNR/DNI The care for this patient was discussed with my supervising physician Time spent for this case was approximately 31 minutes Jax Morrell Dec 08, 2020 08:54
--- NOTE | 2020-12-08 09:31 | Internal Med Progress Note ---
Subjective Physician Name Atif Vázquez Attending Physician Atif Vázquez M.D. Current Medications Medications (Trade) Dose Ordered Sig/Raji Route PRN Reason Start Time Stop Time Status Last Admin Dose Admin Miscellaneous Medication (Narcotic Drip Rate Change) 1 ea DAILY PRN MISC . 12/07/20 18:30 01/06/21 18:29 Miscellaneous Medication (Narcotic Shift Volume) 1 ea Q12HR@0700,1900 MISC 12/07/20 19:00 01/06/21 18:59 12/08/20 07:00 Morphine Sulfate 30 ml @ 0.5 mls/hr LIQUID SUGAR FORTIFIER Protocol PRN IV COMFORT CARE 12/07/20 18:15 12/09/20 18:14 12/07/20 23:47 Allergies: Coded Allergies: No Known Allergies (Unverified , 12/06/20) Subjective intubated overnight discussed with daughter extensively would like to transition to comfort care Objective Last Vital Signs Date Time Temp Pulse Resp B/P (MAP) Pulse Ox O2 Delivery O2 Flow Rate FiO2 12/08/20 00:00 98.1 82 17 115/75 (88) 99 12/07/20 21:00 40 12/07/20 20:00 Mechanical Ventilator Non-Rebreather 12/06/20 11:15 15.0 Laboratory Tests Test 12/07/20 13:22 12/08/20 06:30 Arterial Blood pH 7.494 (7.350-7.450) Arterial Blood Partial Pressure CO2 32.0 mmHg (35.0-45.0) L Arterial Blood Partial Pressure O2 78.0 mmHg (75.0-100.0) Arterial Blood HCO3 24.1 mmol/L (22.0-26.0) Arterial Blood Oxygen Saturation 95.0 % (95-100) Arterial Blood Base Excess 1.0 (-2-2) Cristian Test Positive White Blood Count 10.9 K/UL (4.8-10.8) H Red Blood Count 2.92 M/UL (4.20-5.40) L Hemoglobin 8.3 G/DL (12.0-16.0) L Hematocrit 26.0 % (37.0-47.0) L Mean Corpuscular Volume 89 FL (80-99) Mean Corpuscular Hemoglobin 28.3 PG (27.0-31.0) Mean Corpuscular Hemoglobin Concent 31.8 G/DL (32.0-36.0) L Red Cell Distribution Width 15.6 % (11.6-14.8) H Platelet Count 208 K/UL (150-450) Mean Platelet Volume 7.3 FL (6.5-10.1) Neutrophils (%) (Auto) 80.0 % (45.0-75.0) H Lymphocytes (%) (Auto) 12.9 % (20.0-45.0) L Monocytes (%) (Auto) 6.9 % (1.0-10.0) Eosinophils (%) (Auto) 0.0 % (0.0-3.0) Basophils (%) (Auto) 0.1 % (0.0-2.0) Sodium Level 140 MMOL/L (136-145) Potassium Level 3.6 MMOL/L (3.5-5.1) Chloride Level 107 MMOL/L (98-107) Carbon Dioxide Level 25 MMOL/L (21-32) Anion Gap 8 mmol/L (5-15) Blood Urea Nitrogen 18 mg/dL (7-18) Creatinine 0.7 MG/DL (0.55-1.30) Estimat Glomerular Filtration Rate > 60 mL/min (>60) Glucose Level 102 MG/DL (74-106) Calcium Level 8.3 MG/DL (8.5-10.1) L Phosphorus Level 2.5 MG/DL (2.5-4.9) Magnesium Level 1.7 MG/DL (1.8-2.4) L Total Bilirubin 0.5 MG/DL (0.2-1.0) Aspartate Amino Transf (AST/SGOT) 26 U/L (15-37) Alanine Aminotransferase (ALT/SGPT) 20 U/L (12-78) Alkaline Phosphatase 189 U/L (46-116) H Total Protein 5.8 G/DL (6.4-8.2) L Albumin 1.7 G/DL (3.4-5.0) L Globulin 4.1 g/dL Albumin/Globulin Ratio 0.4 (1.0-2.7) L Microbiology Date/Time Source Procedure Growth Status 12/06/20 03:45 Indwelling Cath Urine Culture - Final Enterococcus Faecium - Vre Complete 12/06/20 03:45 Nasal Nares MRSA Culture - Final NO METHICILLIN RESISTANT STAPH AUREUS... Complete 12/06/20 03:45 Nasal Nares - Final Complete 12/06/20 03:45 Nasal Nares - Final Complete 12/06/20 03:45 Blood Blood Culture - Preliminary NO GROWTH AFTER 24 HOURS Resulted 12/06/20 03:30 Blood Blood Culture - Preliminary NO GROWTH AFTER 24 HOURS Resulted Intake and Output 12/07/20 12/08/20 19:00 07:00 Intake Total 2.5 ml Output Total 590 ml 230 ml Balance -590 ml -227.5 ml Intake IV Total 2.5 ml Output Urine Total 590 ml 230 ml Assessment/Plan Assessment/Plan #Hypoxemic resp failure due to covid pneumonia #Covid pneumonia #Septic shock #HLD #h/o hypertension #h/o dementia #anemia - admit to ICU - intubated intubated overnight discussed with daughter extensively would like to transition to comfort care - on azithro and ceftriaxone - IVF - on dex - defer remdesevir to ID - ID eval - cardiology eval - gen surg eval for decub ulcer - monitor lytes - monitor hemoglobin Atif Vázquez M.D. Dec 08, 2020 09:31
--- NOTE | 2020-12-08 10:42 | Surgery Progress Note ---
Surgery Progress Note Subjective Additional Comments on face mask labs noted no n/v comfortable appearing Objective Last 24 Hour Vital Signs Date Time Temp Pulse Resp B/P (MAP) Pulse Ox O2 Delivery O2 Flow Rate FiO2 12/08/20 00:00 98.1 82 17 115/75 (88) 99 12/07/20 22:00 99 17 119/75 (90) 97 12/07/20 21:00 99 17 119/75 (90) 97 12/07/20 21:00 40 12/07/20 21:00 85 12/07/20 20:00 Mechanical Ventilator Non-Rebreather 12/07/20 20:00 98.8 104 19 138/73 (94) 99 12/07/20 19:10 82 17 40 12/07/20 19:00 87 19 109/55 (73) 96 12/07/20 18:00 135 23 127/74 (91) 90 12/07/20 17:00 82 17 113/61 (78) 97 12/07/20 16:00 98.2 85 17 116/59 (78) 97 12/07/20 16:00 85 12/07/20 16:00 Mechanical Ventilator 12/07/20 16:00 40 12/07/20 15:08 144 28 40 12/07/20 15:00 106 17 137/71 (93) 97 12/07/20 14:00 86 17 118/74 (89) 97 12/07/20 13:00 94 18 132/78 (96) 97 12/07/20 12:00 Mechanical Ventilator 12/07/20 12:00 50 12/07/20 12:00 81 12/07/20 12:00 89 17 114/72 (86) 96 12/07/20 12:00 98.4 89 17 114/72 (86) 96 12/07/20 11:28 80 24 40 12/07/20 11:00 97 21 116/65 (82) 97 I&O Intake and Output 12/07/20 12/08/20 19:00 07:00 Intake Total 2.5 ml Output Total 590 ml 230 ml Balance -590 ml -227.5 ml Intake IV Total 2.5 ml Output Urine Total 590 ml 230 ml Dressing: saturated Cardiovascular: RSR Respiratory: decreased breath sounds Abdomen: soft, non-tender, present bowel sounds, non-distended Extremities: no tenderness, no cyanosis Laboratory Tests Test 12/07/20 13:22 12/08/20 06:30 Arterial Blood pH 7.494 (7.350-7.450) Arterial Blood Partial Pressure CO2 32.0 mmHg (35.0-45.0) L Arterial Blood Partial Pressure O2 78.0 mmHg (75.0-100.0) Arterial Blood HCO3 24.1 mmol/L (22.0-26.0) Arterial Blood Oxygen Saturation 95.0 % (95-100) Arterial Blood Base Excess 1.0 (-2-2) Cristian Test Positive White Blood Count 10.9 K/UL (4.8-10.8) H Red Blood Count 2.92 M/UL (4.20-5.40) L Hemoglobin 8.3 G/DL (12.0-16.0) L Hematocrit 26.0 % (37.0-47.0) L Mean Corpuscular Volume 89 FL (80-99) Mean Corpuscular Hemoglobin 28.3 PG (27.0-31.0) Mean Corpuscular Hemoglobin Concent 31.8 G/DL (32.0-36.0) L Red Cell Distribution Width 15.6 % (11.6-14.8) H Platelet Count 208 K/UL (150-450) Mean Platelet Volume 7.3 FL (6.5-10.1) Neutrophils (%) (Auto) 80.0 % (45.0-75.0) H Lymphocytes (%) (Auto) 12.9 % (20.0-45.0) L Monocytes (%) (Auto) 6.9 % (1.0-10.0) Eosinophils (%) (Auto) 0.0 % (0.0-3.0) Basophils (%) (Auto) 0.1 % (0.0-2.0) Sodium Level 140 MMOL/L (136-145) Potassium Level 3.6 MMOL/L (3.5-5.1) Chloride Level 107 MMOL/L (98-107) Carbon Dioxide Level 25 MMOL/L (21-32) Anion Gap 8 mmol/L (5-15) Blood Urea Nitrogen 18 mg/dL (7-18) Creatinine 0.7 MG/DL (0.55-1.30) Estimat Glomerular Filtration Rate > 60 mL/min (>60) Glucose Level 102 MG/DL (74-106) Calcium Level 8.3 MG/DL (8.5-10.1) L Phosphorus Level 2.5 MG/DL (2.5-4.9) Magnesium Level 1.7 MG/DL (1.8-2.4) L Total Bilirubin 0.5 MG/DL (0.2-1.0) Aspartate Amino Transf (AST/SGOT) 26 U/L (15-37) Alanine Aminotransferase (ALT/SGPT) 20 U/L (12-78) Alkaline Phosphatase 189 U/L (46-116) H Total Protein 5.8 G/DL (6.4-8.2) L Albumin 1.7 G/DL (3.4-5.0) L Globulin 4.1 g/dL Albumin/Globulin Ratio 0.4 (1.0-2.7) L Plan Problems: (1) Hypoxia Assessment & Plan: leukocytosis anemia covid elevated d dimer pulm consult oxygen steroids? abx (2) Bilateral pneumonia (3) Coronavirus infection, unspecified (4) Decubitus skin ulcer Assessment & Plan: Patient identified admission of multiple decubitus skin ulcers and deep tissue injury. Patient evaluated pictures taken care plan initiated nutritional optimization. Turn every 2 hours hospital protocol ini tiated for decubitus prevention and care plan. Apply with recommendations. Thank you for let me participate patient's care Rafal Stoll Dec 08, 2020 10:42
[2020-12-08 12:00] VITALS: BP 117/77
--- NOTE | 2020-12-08 12:40 | NUR ---
NURSE NOTES: Spoke to Nick Espinosa regarding COVID result and no new order.
--- NOTE | 2020-12-08 13:36 | NUR ---
Chief Administrative OfficerSchool Bus Driver/Mechanic SI: Respiratory Failure, COVID PNA T 98.2, HR 93, RR 20, BP 117/77, O2 sat 98% NRM 15L WBC 10.9 Cxray diffuse airspace opacities, small bilateral pleural effusions IS: MS GTT (comfort care) Extubated yesterday Med/Surg Status
--- NOTE | 2020-12-08 14:23 | Cardiac Electrophysiology PN ---
Assessment/Plan Assessment/Plan 1. Elevated troponin of 0.059. The patient does not have renal failure. This could be due to COVID pneumonia. EKG also showed old inferior wall myocardial infarction and right bundle-branch block EF 55% on echocardiogram 2. Right bundle-branch block. 3. Sinus tachycardia at 113 due to the patient's COVID pneumonia. 4. COVID pneumonia respiratory failure Now extubated and comfort care DW RN Subjective Subjective Coded for high CO2 and resp failure and was intubated in ICU Now extubated in covid isolation on morphine drip as is now comfort care Objective Last 24 Hour Vital Signs Date Time Temp Pulse Resp B/P (MAP) Pulse Ox O2 Delivery O2 Flow Rate FiO2 12/08/20 12:00 98.2 93 20 117/77 (90) 98 12/08/20 09:00 Non-Rebreather 15.0 Non-Rebreather 12/08/20 08:00 97.9 82 20 129/84 (99) 99 12/08/20 00:00 98.1 82 17 115/75 (88) 99 12/07/20 22:00 99 17 119/75 (90) 97 12/07/20 21:00 99 17 119/75 (90) 97 12/07/20 21:00 40 12/07/20 21:00 85 12/07/20 20:00 Mechanical Ventilator Non-Rebreather 12/07/20 20:00 98.8 104 19 138/73 (94) 99 12/07/20 19:10 82 17 40 12/07/20 19:00 87 19 109/55 (73) 96 12/07/20 18:00 135 23 127/74 (91) 90 12/07/20 17:00 82 17 113/61 (78) 97 12/07/20 16:00 98.2 85 17 116/59 (78) 97 12/07/20 16:00 85 12/07/20 16:00 Mechanical Ventilator 12/07/20 16:00 40 12/07/20 15:08 144 28 40 12/07/20 15:00 106 17 137/71 (93) 97 l Intake and Output 12/07/20 12/08/20 19:00 07:00 Intake Total 2.5 ml Output Total 590 ml 230 ml Balance -590 ml -227.5 ml Intake IV Total 2.5 ml Output Urine Total 590 ml 230 ml Laboratory Tests Test 12/08/20 06:30 White Blood Count 10.9 K/UL (4.8-10.8) H Red Blood Count 2.92 M/UL (4.20-5.40) L Hemoglobin 8.3 G/DL (12.0-16.0) L Hematocrit 26.0 % (37.0-47.0) L Mean Corpuscular Volume 89 FL (80-99) Mean Corpuscular Hemoglobin 28.3 PG (27.0-31.0) Mean Corpuscular Hemoglobin Concent 31.8 G/DL (32.0-36.0) L Red Cell Distribution Width 15.6 % (11.6-14.8) H Platelet Count 208 K/UL (150-450) Mean Platelet Volume 7.3 FL (6.5-10.1) Neutrophils (%) (Auto) 80.0 % (45.0-75.0) H Lymphocytes (%) (Auto) 12.9 % (20.0-45.0) L Monocytes (%) (Auto) 6.9 % (1.0-10.0) Eosinophils (%) (Auto) 0.0 % (0.0-3.0) Basophils (%) (Auto) 0.1 % (0.0-2.0) Sodium Level 140 MMOL/L (136-145) Potassium Level 3.6 MMOL/L (3.5-5.1) Chloride Level 107 MMOL/L (98-107) Carbon Dioxide Level 25 MMOL/L (21-32) Anion Gap 8 mmol/L (5-15) Blood Urea Nitrogen 18 mg/dL (7-18) Creatinine 0.7 MG/DL (0.55-1.30) Estimat Glomerular Filtration Rate > 60 mL/min (>60) Glucose Level 102 MG/DL (74-106) Calcium Level 8.3 MG/DL (8.5-10.1) L Phosphorus Level 2.5 MG/DL (2.5-4.9) Magnesium Level 1.7 MG/DL (1.8-2.4) L Total Bilirubin 0.5 MG/DL (0.2-1.0) Aspartate Amino Transf (AST/SGOT) 26 U/L (15-37) Alanine Aminotransferase (ALT/SGPT) 20 U/L (12-78) Alkaline Phosphatase 189 U/L (46-116) H Total Protein 5.8 G/DL (6.4-8.2) L Albumin 1.7 G/DL (3.4-5.0) L Globulin 4.1 g/dL Albumin/Globulin Ratio 0.4 (1.0-2.7) L Microbiology Date/Time Source Procedure Growth Status 12/06/20 03:45 Indwelling Cath Urine Culture - Final Enterococcus Faecium - Vre Complete 12/06/20 03:45 Nasal Nares MRSA Culture - Final NO METHICILLIN RESISTANT STAPH AUREUS... Complete 12/06/20 03:45 Nasal Nares - Final Complete 12/06/20 03:45 Nasal Nares - Final Complete 12/06/20 03:45 Nasopharynx Coronavirus COVID-19 PCR (YO) - Final Complete 12/06/20 03:45 Blood Blood Culture - Preliminary NO GROWTH AFTER 24 HOURS Resulted 12/06/20 03:30 Blood Blood Culture - Preliminary NO GROWTH AFTER 24 HOURS Resulted Objective HEAD AND NECK: No JVD. LUNGS: Coarse rhonchi. CARDIOVASCULAR: Regular S1 and S2 with no gallop. ABDOMEN: Soft. EXTREMITIES: No pitting edema. Rowdy Palomino MD Dec 08, 2020 14:23
[2020-12-08 16:00] VITALS: BP 129/81
--- NOTE | 2020-12-08 19:30 | NUR ---
NURSE HAND-OFF: Important Events on Shift:N/A Patient Status: Stable Diet: NPO Pending Orders: N/A Pending Results/Labs: CBC, CMP, Mg, Phos on 12/09 Pending MD notification:N/A Latest Vital Signs: Temperature 98.4 , Pulse 105 , B/P 129 /81 , Respiratory Rate 20 , O2 SAT 96 , Venturi Mask, O2 Flow Rate 15.0 . Vital Sign Comment: Stable Latest Edmonds Fall Score: 50 Fall Risk: High Risk Safety Measures: Call light Within Reach, Bed Alarm Zone 1, Side Rails Side Rails x3, Bed position Low and Locked. Fall Precautions: Yellow Socks Yellow Gown Door Sign Patient Fall Education Report given to Svetlana MACK. Patient in stable condition.
--- NOTE | 2020-12-08 19:45 | NUR ---
Nurse notes error to prevoius charting. IV to RFA infusing Morphine 0.5mg/hr. Oneal patent intact draining properly. will continue to monitor for care and treatment. DNR/DNI status maintained COVID precautions reinforced Bed in lowest position call light in reach.
--- NOTE | 2020-12-08 19:45 | NUR ---
Nurses Notes Pt lying in bed comfortable AAOx0. non verbal. No acute respiratory distress noted at this time.pt on non rebreather face mask at 15 L/min. NG tube to left nostril clamped. RFA infusing morphine @ 0.6PCA Morphine @0.5mg.hr
[2020-12-08 20:00] VITALS: BP 128/81
[2020-12-08] MEDS ORDERED: D5 1/2NS 1000ml IV ONE (20:03)
[2020-12-09] VITALS: BP 147/68
[2020-12-09 04:00] VITALS: BP 145/76
[2020-12-09] MEDS: Narcotic Shift Volume MISC SCH (07:00)
--- NOTE | 2020-12-09 07:26 | NUR ---
NURSE NOTES: Report received from Svetlana MACK, rounds made. Patient alert, eyes open, blinks, non-verbal. Respirations labored/rapid on O2 15L non-rebreather mask. HOB elevated. Patient edematous to upper and lower extremities, pitting +2-3. Does not move arms/legs to touch, or turns. Skin precautions, will reposition, throughout shift, will change dressings. FC in place, y/cl. IV GENERAL ACCOUNTING MANAGER continuous Morphine drip at 0.5mg/hr with NS TKO 30 ml/hr to RFA, site asymptomatic. Remains NPO. Bed in lowest position, will continue to monitor.
--- NOTE | 2020-12-09 07:45 | NUR ---
Report given to Araceli
[2020-12-09 08:00] VITALS: BP 127/94
--- NOTE | 2020-12-09 10:45 | NUR ---
CASE MANAGEMENT:REVIEW 12/09/20 SI: COVID PNA. ACUTE RESPIRATORY FAILURE S/P TERMINAL EXTUBATION 96.1 92 20 145/76 98% ON 15L NRB IS: MORPHINE GTT : MED/SURG STATUS DCP: FROM [facility] PLAN: COMFORT CARE
--- NOTE | 2020-12-09 10:45 | Cardiac Electrophysiology PN ---
Assessment/Plan Assessment/Plan 1. Elevated troponin of 0.059. The patient does not have renal failure. This could be due to COVID pneumonia. EKG also showed old inferior wall myocardial infarction and right bundle-branch block EF 55% on echocardiogram 2. Right bundle-branch block. 3. Sinus tachycardia at 113 due to the patient's COVID pneumonia. 4. COVID pneumonia respiratory failure Now extubated and comfort care on morphine drip IAM RN Subjective Subjective Coded for high CO2 and resp failure and was intubated in ICU Extubated in covid isolation on morphine drip at 0.5 mg and is comfort care Objective Last 24 Hour Vital Signs Date Time Temp Pulse Resp B/P (MAP) Pulse Ox O2 Delivery O2 Flow Rate FiO2 12/09/20 04:00 96.1 92 20 145/76 (99) 98 12/09/20 00:00 98.0 94 20 147/68 (94) 98 12/08/20 21:00 Non-Rebreather 15.0 Non-Rebreather 12/08/20 20:00 98.4 77 20 128/81 (97) 96 12/08/20 16:00 98.4 105 20 129/81 (97) 96 12/08/20 12:00 98.2 93 20 117/77 (90) 98 Intake and Output 12/08/20 12/09/20 19:00 07:00 Output Total 450 ml Balance -450 ml Output Urine Total 450 ml Objective HEAD AND NECK: No JVD. LUNGS: Coarse rhonchi. CARDIOVASCULAR: Regular S1 and S2 with no gallop. ABDOMEN: Soft. EXTREMITIES: No pitting edema. Rowdy Palomino MD Dec 09, 2020 10:45
[2020-12-09 12:00] VITALS: BP 152/92
--- NOTE | 2020-12-09 12:02 | Pulmonology Progress Note ---
Subjective ROS Limited/Unobtainable: Yes Interval Events: now DNR/DNI with s/p terminal extubation Constitutional: Reports: no symptoms, other - transferred to Med/surg HEENT: Repors: no symptoms Respiratory: Reports: dyspnea at rest Cardiovascular: Reports: no symptoms Gastrointestinal/Abdominal: Reports: no symptoms Genitourinary: Reports: no symptoms Allergies: Coded Allergies: No Known Allergies (Unverified , 12/06/20) Objective Last 24 Hour Vital Signs Date Time Temp Pulse Resp B/P (MAP) Pulse Ox O2 Delivery O2 Flow Rate FiO2 12/09/20 08:00 98.4 96 20 127/94 (105) 96 12/09/20 04:00 96.1 92 20 145/76 (99) 98 12/09/20 00:00 98.0 94 20 147/68 (94) 98 12/08/20 21:00 Non-Rebreather 15.0 Non-Rebreather 12/08/20 20:00 98.4 77 20 128/81 (97) 96 12/08/20 16:00 98.4 105 20 129/81 (97) 96 12/08/20 12:00 98.2 93 20 117/77 (90) 98 Intake and Output 12/08/20 12/09/20 19:00 07:00 Output Total 450 ml Balance -450 ml Output Urine Total 450 ml General Appearance: no acute distress HEENT: normocephalic Respiratory: chest wall non-tender, respiratory distress Cardiovascular: normal peripheral pulses, normal rate Abdomen: normal bowel sounds Extremities: no cyanosis Current Medications Medications (Trade) Dose Ordered Sig/Raji Route PRN Reason Start Time Stop Time Status Last Admin Dose Admin Miscellaneous Medication (Narcotic Drip Rate Change) 1 ea DAILY PRN MISC . 12/07/20 18:30 01/06/21 18:29 Miscellaneous Medication (Narcotic Shift Volume) 1 ea Q12HR@0700,1900 MISC 12/07/20 19:00 01/06/21 18:59 12/09/20 07:00 Morphine Sulfate 30 ml @ 0.5 mls/hr VACUUM METALIZING SUPERVISOR Protocol PRN IV COMFORT CARE 12/07/20 18:15 12/09/20 18:14 12/07/20 23:47 Assessment/Plan Assessment/Plan Assessment/Plan Assessment/Plan 1. COVID-19 pneumonia with hypoxia; initial testing from outside source -now off broad-spectrum antibiotics, dexamethasone - In-house COVID-19 PCR result pending 2. Elevated inflammatory markers - Lovenox for DVT prophylaxis 3. Respiratory Failure - now on NRB saturating at 96% - continue supplemental oxygen to keep SaO2 >90% Leukocytosis - improving 10.9 Anemia - stable H&H low Hyperglycemia Troponin leak Elevated BNP RASHMI DNR/DNI, on Morphine The care for this patient was discussed with my supervising physician Liat Morel NP Dec 09, 2020 12:02
--- NOTE | 2020-12-09 14:57 | Internal Med Progress Note ---
Subjective Physician Name Atif Vázquez Attending Physician Atif Vázquez M.D. Current Medications Medications (Trade) Dose Ordered Sig/Raji Route PRN Reason Start Time Stop Time Status Last Admin Dose Admin Miscellaneous Medication (Narcotic Drip Rate Change) 1 ea DAILY PRN MISC . 12/07/20 18:30 01/06/21 18:29 Miscellaneous Medication (Narcotic Shift Volume) 1 ea Q12HR@0700,1900 MISC 12/07/20 19:00 01/06/21 18:59 12/09/20 07:00 Morphine Sulfate 30 ml @ 0.5 mls/hr HEALTHCARE ASSOCIATE Protocol PRN IV COMFORT CARE 12/07/20 18:15 12/09/20 18:14 12/07/20 23:47 Allergies: Coded Allergies: No Known Allergies (Unverified , 12/06/20) Subjective intubated overnight discussed with daughter extensively would like to transition to comfort care Objective Last Vital Signs Date Time Temp Pulse Resp B/P (MAP) Pulse Ox O2 Delivery O2 Flow Rate FiO2 12/09/20 08:00 98.4 96 20 127/94 (105) 96 12/08/20 21:00 Non-Rebreather 15.0 Non-Rebreather 12/07/20 21:00 40 Intake and Output 12/08/20 12/09/20 19:00 07:00 Output Total 450 ml Balance -450 ml Output Urine Total 450 ml Assessment/Plan Assessment/Plan #Hypoxemic resp failure due to covid pneumonia #Covid pneumonia #Septic shock #HLD #h/o hypertension #h/o dementia #anemia - admit to ICU - intubated intubated overnight discussed with daughter extensively would like to transition to comfort care - on azithro and ceftriaxone - IVF - on dex - defer remdesevir to ID - ID eval - cardiology eval - gen surg eval for decub ulcer - monitor lytes - monitor hemoglobin Atif Vázquez M.D. Dec 09, 2020 14:57
--- NOTE | 2020-12-09 15:00 | NUR ---
NURSE NOTES: Skin care provided, all wound care done to sacral, buttocks/gluteal, knees, heels/feet/ankles as instructed by wound nurse. P200 [address], functioning well. Repositioned. Linen changed. HR/O2 sat fluctuates, HR 90-130's, O2 sat 93-99% on 15L non-rebreather mask, patient monitored continuously. SALVAGE CUTTER Morphine continuously infusing at 0.5mg/hr as ordered without difficulty.
[2020-12-09 16:00] VITALS: BP 128/80
--- NOTE | 2020-12-09 17:00 | Surgery Progress Note ---
Surgery Progress Note Subjective Symptoms: improved Objective Last 24 Hour Vital Signs Date Time Temp Pulse Resp B/P (MAP) Pulse Ox O2 Delivery O2 Flow Rate FiO2 12/09/20 16:00 98.2 125 18 128/80 (96) 92 12/09/20 12:00 97.7 96 18 152/92 (112) 96 12/09/20 08:00 98.4 96 20 127/94 (105) 96 12/09/20 04:00 96.1 92 20 145/76 (99) 98 12/09/20 00:00 98.0 94 20 147/68 (94) 98 12/08/20 21:00 Non-Rebreather 15.0 Non-Rebreather 12/08/20 20:00 98.4 77 20 128/81 (97) 96 I&O Intake and Output 12/08/20 12/09/20 19:00 07:00 Output Total 450 ml Balance -450 ml Output Urine Total 450 ml Dressing: saturated Cardiovascular: RSR Respiratory: decreased breath sounds Abdomen: non-tender, present bowel sounds Extremities: no edema, no tenderness, no cyanosis Plan Problems: (1) Hypoxia Assessment & Plan: leukocytosis anemia covid elevated d dimer pulm consult oxygen steroids? abx (2) Bilateral pneumonia (3) Coronavirus infection, unspecified (4) Decubitus skin ulcer Assessment & Plan: Patient identified admission of multiple decubitus skin ulcers and deep tissue injury. Patient evaluated pictures taken care plan initiated nutritional optimization. Turn every 2 hours hospital protocol initiated for decubitus prevention and care plan. Apply with recommendations. Thank you for let me participate patient's care Rafal Stoll Dec 09, 2020 16:59
--- NOTE | 2020-12-09 17:25 | NUR ---
NURSE NOTES: Spoke with daughter, Karin Whitfield regarding patient current status, IV/GEOPOLITICS TEACHER, FC, skin care, NPO, NG clamped, O2, vitals, COVID isolation. Provided direct [facility].
[2020-12-09] MEDS ORDERED: PCA Morphine 1mg/ml 30 ML IV SCH (18:45)
--- NOTE | 2020-12-09 19:07 | NUR ---
NURSE NOTES: Dr. Vázquez notified for new order for CLOTH DOUBLING MACHINE OPERATOR Morphine, previous order . Order received to renew as previous. CLOTH DOUBLING MACHINE OPERATOR Morphine syringe and tubing changed at this time. Setting remains at 0.5 mg/hr continuous drip for COMFORT CARE. Addendum: 12/09/20 at 1920 by Araceli Bowen RN Upon entering room to change CLOTH DOUBLING MACHINE OPERATOR syringe and tubing, patient noted without any respirations (O2 15L non-rebreather in place), pale, skin still warm, eyes open, vitals assessed, no HR, O2 sat reading, BP noted. Christianne OWEN (days) and Marisol OWEN (nights) notified. IV NS and CLOTH DOUBLING MACHINE OPERATOR turned off/clamped/disconnected from patient. Addendum: 12/09/20 at 1954 by Araceli Bowen RN CLOTH DOUBLING MACHINE OPERATOR Morphine not opened, returned to Joanne with Marisol CN, co-signed for return, undone on eMAR.
[2020-12-09] MEDS ORDERED: NS 500ML ONE (19:09)
--- NOTE | 2020-12-09 19:10 | NUR ---
PRONOUNCEMENT: No Code. Called to pronounce patient. Absence of spontaneous respirations, no cardiac or breath sounds on auscultation. Pupils fixed and dilated. No carotid pulse or chest movement. Patient at 1909. DR Vázquez notified PER Christianne Senior Net Developer Architect Family daughter Karin, was notified by Chanda Bowen. Senior Net Developer Architect Marsiol spoke with Karin who does not want to visit because of covid, given the number to nursing office to call as arrangements have not been made. [facility] notified by Albin. . Addendum: 12/09/20 at 2219 by DAIJA Alejandra no belongings and [place] [facility] [place]
--- NOTE | 2020-12-09 19:20 | NUR ---
NURSE NOTES: Attempted to notify Verifier Operator regarding patient , no answer, will try again.
--- NOTE | 2020-12-09 19:34 | NUR ---
NURSE NOTES: Polisher Sand notified that patient has .
--- NOTE | 2020-12-09 19:55 | NUR ---
NURSE HAND-OFF: Important Events on Shift:Patient , notified by Christianne OWEN, Vault Attendant notified, Marisol OWEN notified, Daughter Karin Whitfield notified Patient Status: N/A Diet: N/A Pending Orders: N/A Pending Results/Labs:N/A Pending MD notification:N/A Latest Vital Signs: Temperature 98.2 , Pulse 125 , B/P 128 /80 , Respiratory Rate 18 , O2 SAT 92 , Venturi Mask, O2 Flow Rate 15.0 . Vital Sign Comment: N/A Latest Edmonds Fall Score: 70 Fall Risk: High Risk Safety Measures: Call light Within Reach, Bed Alarm Zone 1, Side Rails Side Rails x3, Bed position Low and Locked. Fall Precautions: Yellow Socks Yellow Gown Door Sign Patient Fall Education Report given to Albin MACK.
--- NOTE | 2020-12-09 19:57 | NUR ---
NURSE NOTES: Called patient's daughter, Karin Whitfield, notified that patient has and if she/family would like to come to see patient for one hour. Karin said she will call her sister and then call us back to let us know. Direct number to [facility] nurses station provided. Updated Marisol VILLAR
--- NOTE | 2020-12-09 20:00 | NUR ---
NURSE NOTES: Spoke with [facility], provided patient admitting diagnosis/COVID + 12/08, and history of Dementia, was informed patient is not a candidate as donor. REFERENCE NUMBER [id number]. Documented on RECORD OF form. Given to Marisol VLILAR
--- NOTE | 2020-12-09 20:34 | NUR ---
NURSE NOTES: Remainder of COPYRIGHT MANAGER Morphine syringe , removed from COPYRIGHT MANAGER pump and returned to pharmacy, 6 ml remaining in syringe. RFA saline lock removed.
--- NOTE | 2020-12-12 15:59 | Discharge Summary ---
Discharge Summary Discharge Summary _ Date of admission: 12/06/2020 Date of expiration: 12/09/2020 History of Present Illness and Brief Hospital Course Ms. Strickland was a 75-year-old female was sent to ED from SNF for evaluation of increased difficulty breathing and hypoxia. Her medical history included unstageable pressure sores, hypertension, dementia, psychosis, and hyperlipidemia. It was reported that she tested positive for COVID-19 infection 10 days ago. She arrived hypoxic despite placement of nonrebreather by EMS during transportation. She was immediately placed on BiPAP with subsequent improvement in her oxygen saturation. The follow-up ABG showed respiratory alkalosis. Her chest x-ray was notable for bilateral infiltrates. She was given fluids and antibiotics, as well as Decadron and was admitted to the hospital for further management. Given her COVID-19 pneumonia with hypoxia, broad-spectrum antibiotics were continued for pneumonia coverage, and dexamethasone for hypoxia. Due to worsening respiratory failure, she was intubated and was transferred to ICU. However, family requested her to be terminally extubated with DNR/DNI status and with comfort care. She was extubated and was placed on nonrebreather. Patient was identified on admission of multiple decubitus skin ulcers and deep tissue injury. Appropriate wound care was instituted and the patient was turned every 2 hours per hospital protocol. On 12/09/2020, patient was found to take no spontaneous respirations. No cardiac or breath sounds were appreciated on auscultation. Her pupils were fixed and dilated and no carotid pulse or chest movement was observed. Unfortunately, patient pronounced on 12/09/2020 at 1910. Cause of : Cardiopulmonary arrest Consultants: Cardiology Dr. Palomino Infectious disease Dr. Cook Surgery Dr. Stoll Pulmonology Dr. Kyle Final diagnoses Elevated troponin Right bundle branch block Sinus tachycardia COVID-19 pneumonia Hypoxemic respiratory failure due to COVID-19 pneumonia Septic shock Hyperlipidemia History of hypertension History of dementia Anemia Hyperglycemia RASHMI decubitus ulcer undue that Decubitus ulcer I have been assigned to dictate discharge summary for this account. Jax Morrell Dec 12, 2020 15:59
== END 2020-12-09 19:10 | disposition expired | DRG 871 ==
LOC: EDBD 03:35 → EMR 03:47 → 2W 04:06 → EDBEDREQSVC 10:02 → EDBEDREQ 10:02 → ICU 17:29 → 4E 12-07 23:08
PROC: 5A1945Z Respiratory Ventilation, 24-96 Consecutive Hours (ICD-10-PCS; principal; 2020-12-06)
PROC: 5A09357 Assistance with Respiratory Ventilation, Less than 24 Consecutive Hours, Continuous Positive Airway Pressure (ICD-10-PCS; principal; 2020-12-06)
PROC: 0BH17EZ Insertion of Endotracheal Airway into Trachea, Via Natural or Artificial Opening (ICD-10-PCS; principal; 2020-12-06)
DX: A41.89 Other specified sepsis (principal); U07.1 COVID-19; J12.82 Pneumonia due to coronavirus disease 2019; R65.21 Severe sepsis with septic shock; J96.01 Acute respiratory failure with hypoxia; Z51.5 Encounter for palliative care; Z66 Do not resuscitate; I10 Essential (primary) hypertension; E78.5 Hyperlipidemia, unspecified; L89.90 Pressure ulcer of unspecified site, unspecified stage; L89.96 Pressure-induced deep tissue damage of unspecified site; F03.90 Unspecified dementia, unspecified severity, without behavioral disturbance, psychotic disturbance, mood disturbance, and anxiety; I25.2 Old myocardial infarction; I45.10 Unspecified right bundle-branch block; Z79.84 Long term (current) use of oral hypoglycemic drugs
CPT/HCPCS: 36415; 71045; 74018; 80048; 80053; 81003; 82550; 82553; 82728; 82803; 83540; 83550; 83605; 83615; 83690; 83735; 83880; 84100; 84484; 85007; 85025; 85379; 85610; 85730; 86140; 86710; 86850; 86900; 86901; 86920; 87040; 87081; 87086; 87181; 93005; 93306; 94002; 94003; 96365; 96367; 96375; 99291